=== PATIENT | male | born 1980 | race Caucasian/White ===

== ENCOUNTER 2016-08-07 15:33 | Emergency (ER) | payer OTHER ==
[2016-08-07] MEDS ORDERED: MORPHINE 4 MG/ML 1ML SYRINGE As Ordered ONE ×2 (16:46→17:35)
[2016-08-07] MEDS ORDERED: ONDANSETRON 4MG/2ML VIAL (J2405) As Ordered ONE (16:46)
[2016-08-07] MEDS ORDERED: KETOROLAC 30 MG/ML VIAL (J1885) As Ordered ONE (17:06)
[2016-08-07 17:08] LABS: BASO % 0.7 % (0.0-1.0); EOS # 0.3 K/mm3 (0.0-0.50); EOS % 4.9 % (0.0-3.0); LARGE UNSTAINED CELL # 0.1 K/mm3 (0.0-0.4); LARGE UNSTAINED CELL % 2.1 % (0.0-4.0); LYMPH # 2.3 K/mm3 (1.5-4.5); LYMPH % 32.4 % (24.0-44.0); MEAN CORPUSCULAR HEMOGLOBIN 30.3 pg (27.0-33.0); MEAN CORPUSCULAR HGB CONC 35.5 g/dl (32.0-36.5); MEAN CORPUSCULAR VOLUME 85.2 fl (80.0-96.0); MONO # 0.4 K/mm3 (0.0-0.8); MONO % 6.1 % (0.0-5.0); NEUTROPHILS # 3.8 K/mm3 (1.8-7.7); NEUTROPHILS % 53.9 % (36.0-66.0); PLATELET COUNT, AUTOMATED 257 k/mm3 (150-450); RED CELL DISTRIBUTION WIDTH 12.8 % (11.5-14.5)
[2016-08-07 17:31] LABS: ALBUMIN 4.2 GM/DL (3.2-5.2); ALBUMIN/GLOBULIN RATIO 1.14 (1.00-1.93); ALKALINE PHOSPHATASE 72 U/L (45-117); ALT/SGPT 89 U/L (12-78); AMYLASE 19 U/L (25-115); ANION GAP 8 MEQ/L (8-16); AST/SGOT 28 U/L (15-37); BILIRUBIN,DIRECT 0.1 MG/DL (0.0-0.2); BILIRUBIN,TOTAL 0.5 MG/DL (0.2-1.0); BLOOD UREA NITROGEN 17 MG/DL (7-18); CARBON DIOXIDE LEVEL 25 MEQ/L (21-32); CHLORIDE LEVEL 107 MEQ/L (98-107); CREATININE FOR GFR 0.97 MG/DL (0.70-1.30); GLOMERULAR FILTRATION RATE > 60.0 (>60); GLUCOSE, FASTING 93 MG/DL (70-105); SODIUM LEVEL 140 MEQ/L (136-145); TOTAL PROTEIN 7.9 GM/DL (6.4-8.2)
[2016-08-07] MEDS ORDERED: GASTROGRAFIN SOLUTION 30ML (Q9963) As Ordered ONE (17:44)
[2016-08-07] MEDS ORDERED: MORPHINE 2 MG/ML 1ML SYRINGE As Ordered ONE (18:06)
[2016-08-07] MEDS ORDERED: ISOVUE-370 76% 100ML VIAL (Q9967) As Ordered ONE (19:16)
[2016-08-07] MEDS ORDERED: DICYCLOMINE INJ 20MG/2ML (J0500) As Ordered ONE (19:26)
[2016-08-07] MEDS ORDERED: ACETAMINOPHEN/CODEINE #3 TABLET (BULK) As Ordered ONE (20:27)
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
--- NOTE | 2016-08-08 10:23 | REP ---
Clinical: Abdominal pain with history of Crohn disease. Technique: Axial contrast enhanced images from the lung bases to the pubic symphysis using oral and 100 ml Isovue 370 intravenous contrast material with coronal and sagittal re-formations. Comparison: 05/20/2016. Findings: Lung bases demonstrate bibasilar atelectasis. Fatty infiltration to the liver is again noted without focal hepatic lesion. Spleen, pancreas, gallbladder, bilateral adrenal glands and kidneys are normal. The enteric system is without obstruction or obvious definite acute inflammatory process. A normal terminal ileum and appendix are identified in the right lower quadrant. Sigmoid diverticula noted without acute diverticulitis. Pelvis demonstrates normal bladder and age appropriate prostate/seminal vesicles. No pelvic fluid or ascites. No intraperitoneal or retroperitoneal adenopathy. Vasculature is normal. No free air. Musculoskeletal structures intact. Impression: 1. Fatty infiltration to the liver. 2. Relatively normal appearance to the enteric system including cecum, terminal ileum and appendix. 3. Basilar atelectasis. 4. No free fluid and no obvious acute intra-abdominal or pelvic pathology appreciated Signed by Carlos Kendrick MD 08/08/2016 10:14 A
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
== END 2016-08-07 20:40 | disposition home or self-care (01) ==
LOC: M ED 15:33
DX: R10.30 Lower abdominal pain, unspecified (principal); I10 Essential (primary) hypertension; I49.9 Cardiac arrhythmia, unspecified; F41.9 Anxiety disorder, unspecified; F32.9 Major depressive disorder, single episode, unspecified; Z79.899 Other long term (current) drug therapy; Z79.82 Long term (current) use of aspirin; Z88.0 Allergy status to penicillin; Z87.891 Personal history of nicotine dependence

== ENCOUNTER → 2016-08-18 | Outpatient (CLI) | payer OTHER ==
--- NOTE | 2016-08-21 23:44 | SLEEPCENT ---
DATE OF PROCEDURE: 08/18/2016 ORDERED BY: Ramona Carty Nocturnal polysomnography was performed for evaluation of sleep apnea syndrome symptoms in this patient with a history of excessive somnolence, nonrestorative sleep and comorbidities of hypertension. 8 hours and 23 minutes of data were reviewed. There 387 minutes of sleep identified. Sleep latency was prolonged at 45 minutes. Rapid eye movement (REM) latency was prolonged at 214 minutes. Sleep architecture was fragmented. There were 3 REM periods appreciated. Overall sleep efficiency was fair at 77.8% but there was a reduction in REM time noted. The patient's EKG showed a sinus rhythm with some rate variability. Average heart rate 65 beats per minute. EEG showed normal waveforms for awake and sleep stages. There were 178 respiratory events identified of 10 seconds in duration or greater for an apnea-hypopnea index of 27.6. The events were primarily obstructive, not exclusive to sleep stage nor to body posture. Arousals from respiratory events occurred 13.8 times per hour. Oxygen desaturations were seen into the 80s. There was significant limb activity identified during the study and 3-4 trains of 30 events were seen. Limb movement arousal index was 9.9. IMPRESSION: 1. Obstructive sleep apnea syndrome (G47.33). Apnea-hypopnea index 27.6. 2. Periodic limb movement (G47.61). Limb movement arousal index 9.9. RECOMMENDATION: The patient should be encouraged to return to the sleep disorder center for pressure therapy. In the interim, alcohol and sedative avoidance should be practiced and caution exercised during the operation of motor vehicles. Pending the response to pressure therapy, interventions to reduce the frequency of arousal from limb activity may also be helpful. Copy To: Donald Thomas
== END ==
LOC: M SLEEP 19:22
PROVIDERS: ATTEND Nurse Practitioner Adult Health
DX: G47.33 Obstructive sleep apnea (adult) (pediatric) (principal); G47.61 Periodic limb movement disorder

== ENCOUNTER 2016-08-30 23:42 | Emergency (ER) | payer OTHER ==
[2016-08-31 02:17] LABS: BASO % 0.6 % (0.0-1.0); EOS # 0.3 K/mm3 (0.0-0.50); EOS % 4.2 % (0.0-3.0); LARGE UNSTAINED CELL # 0.2 K/mm3 (0.0-0.4); LARGE UNSTAINED CELL % 2.3 % (0.0-4.0); LYMPH # 1.9 K/mm3 (1.5-4.5); LYMPH % 29.2 % (24.0-44.0); MEAN CORPUSCULAR HEMOGLOBIN 29.9 pg (27.0-33.0); MEAN CORPUSCULAR HGB CONC 34.7 g/dl (32.0-36.5); MEAN CORPUSCULAR VOLUME 86.2 fl (80.0-96.0); MONO # 0.5 K/mm3 (0.0-0.8); MONO % 7.3 % (0.0-5.0); NEUTROPHILS # 3.7 K/mm3 (1.8-7.7); NEUTROPHILS % 56.4 % (36.0-66.0); PLATELET COUNT, AUTOMATED 241 k/mm3 (150-450); RED CELL DISTRIBUTION WIDTH 13.3 % (11.5-14.5); WHITE BLOOD COUNT 6.6 K/mm3 (4.0-10.0)
[2016-08-31 02:25] LABS: INR 0.96
[2016-08-31 02:53] LABS: ALBUMIN 3.8 GM/DL (3.2-5.2); ALBUMIN/GLOBULIN RATIO 1.15 (1.00-1.93); ALKALINE PHOSPHATASE 75 U/L (45-117); ALT/SGPT 70 U/L (12-78); AMYLASE 24 U/L (25-115); ANION GAP 8 MEQ/L (8-16); AST/SGOT 28 U/L (15-37); BILIRUBIN,DIRECT < 0.1 MG/DL (0.0-0.2); BILIRUBIN,TOTAL 0.2 MG/DL (0.2-1.0); BLOOD UREA NITROGEN 15 MG/DL (7-18); CALCIUM LEVEL 8.7 MG/DL (8.5-10.1); CARBON DIOXIDE LEVEL 28 MEQ/L (21-32); CHLORIDE LEVEL 107 MEQ/L (98-107); CREATININE FOR GFR 1.05 MG/DL (0.70-1.30); GLOMERULAR FILTRATION RATE > 60.0 (>60); GLUCOSE, FASTING 134 MG/DL (70-105); SODIUM LEVEL 143 MEQ/L (136-145); TOTAL PROTEIN 7.1 GM/DL (6.4-8.2)
[2016-08-31] MEDS ORDERED: HYDROmorphone HCL 1 MG/ML SYRINGE (J1170) As Ordered ONE ×2 (03:24→04:06)
[2016-08-31] MEDS ORDERED: GASTROGRAFIN SOLUTION 30ML (Q9963) As Ordered ONE (03:48)
[2016-08-31] MEDS ORDERED: ISOVUE-370 76% 100ML VIAL (Q9967) As Ordered ONE (05:26)
--- NOTE | 2016-08-31 06:40 | REPUSA ---
CLINICAL HISTORY: Abdominal pain. TECHNIQUE: Multiple axial, sagittal and coronal CT images were obtained through the abdomen and pelvi s after administration of oral and intravenous contrast material. COMMENTS: The liver is moderately enlarged with decreased attenuation without mass or defect. There is no intra or extrahepatic biliary ductal dilatation. The spleen is normal. The gallbladder is within normal li mits. The pancreas is of normal contour and attenuation characteristics. There is no evidence of adre nal mass. Both kidneys demonstrate prompt and equal nephrograms. The kidneys are normal in size, shape and conf iguration. There is no evidence of renal or ureteral mass. No renal or ureteral calculi are identifie d. There is no hydroureter or hydronephrosis. No evidence for appendicitis. There is no bowel wall thickening. No evidence for small or large pancho l obstruction. There is no evidence of abdominal ascites or lymphadenopathy. There is no evidence of intrinsic or extrinsic bladder mass. There is no pelvic ascites or lymphadeno kamilah. Diffuse thickening of the bladder. Images of the lung bases show no evidence of pleural or parenchymal mass. There are no pleural effusi ons. Bilateral basilar atelectatic pulmonary changes. The bony structures are free of lytic or blastic lesions. Multilevel degenerative changes are seen in volving the thoracolumbar spine. Scattered calcifications are seen involving the aorta and major bran ches compatible with atherosclerosis. IMPRESSION: No evidence of acute abdominal or pelvic pathology. Mildly thickened bladder. Probably underdistention. Hepatomegaly with fat infiltration. Thank you for your kind referral of this patient.
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
== END 2016-08-31 07:08 | disposition home or self-care (01) ==
LOC: M ED 23:42
DX: K76.0 Fatty (change of) liver, not elsewhere classified (principal); R16.0 Hepatomegaly, not elsewhere classified; F41.9 Anxiety disorder, unspecified; F32.9 Major depressive disorder, single episode, unspecified; I10 Essential (primary) hypertension; I49.9 Cardiac arrhythmia, unspecified; Z87.891 Personal history of nicotine dependence; Z79.82 Long term (current) use of aspirin; Z79.899 Other long term (current) drug therapy; Z88.0 Allergy status to penicillin

== ENCOUNTER 2016-09-07 22:57 | Inpatient (IN) | payer OTHER ==
[~2016-09-07] VITALS: Ht 182.9 cm; Wt 137.2 kg
[2016-09-08] MEDS ORDERED: MORPHINE 4 MG/ML 1ML SYRINGE As Ordered ONE ×2 (00:35→01:20)
[2016-09-08] MEDS ORDERED: ONDANSETRON 4MG/2ML VIAL (J2405) As Ordered ONE ×2 (00:35→11:55)
[2016-09-08 00:51] LABS: BASO % 0.9 % (0.0-1.0); EOS # 0.3 K/mm3 (0.0-0.50); EOS % 4.9 % (0.0-3.0); LARGE UNSTAINED CELL # 0.2 K/mm3 (0.0-0.4); LARGE UNSTAINED CELL % 3.5 % (0.0-4.0); LYMPH # 2.1 K/mm3 (1.5-4.5); LYMPH % 34.9 % (24.0-44.0); MEAN CORPUSCULAR HEMOGLOBIN 28.8 pg (27.0-33.0); MEAN CORPUSCULAR HGB CONC 33.7 g/dl (32.0-36.5); MEAN CORPUSCULAR VOLUME 85.5 fl (80.0-96.0); MONO # 0.4 K/mm3 (0.0-0.8); MONO % 6.7 % (0.0-5.0); NEUTROPHILS # 2.9 K/mm3 (1.8-7.7); NEUTROPHILS % 49.2 % (36.0-66.0); PLATELET COUNT, AUTOMATED 260 k/mm3 (150-450); RED CELL DISTRIBUTION WIDTH 13.2 % (11.5-14.5); WHITE BLOOD COUNT 5.9 K/mm3 (4.0-10.0)
[2016-09-08 01:03] LABS: INR 1.09
[2016-09-08 01:11] LABS: ALBUMIN 4.1 GM/DL (3.2-5.2); ALBUMIN/GLOBULIN RATIO 1.11 (1.00-1.93); ALKALINE PHOSPHATASE 64 U/L (45-117); ALT/SGPT 60 U/L (12-78); AMYLASE 28 U/L (25-115); ANION GAP 11 MEQ/L (8-16); AST/SGOT 27 U/L (15-37); BILIRUBIN,DIRECT 0.1 MG/DL (0.0-0.2); BILIRUBIN,TOTAL 0.4 MG/DL (0.2-1.0); BLOOD UREA NITROGEN 13 MG/DL (7-18); CARBON DIOXIDE LEVEL 26 MEQ/L (21-32); CHLORIDE LEVEL 105 MEQ/L (98-107); GLOMERULAR FILTRATION RATE > 60.0 (>60); GLUCOSE, FASTING 85 MG/DL (70-105); POTASSIUM SERUM 4.1 MEQ/L (3.5-5.1); SODIUM LEVEL 142 MEQ/L (136-145); TOTAL PROTEIN 7.8 GM/DL (6.4-8.2)
[2016-09-08] MEDS ORDERED: HYDROmorphone HCL 1 MG/ML SYRINGE (J1170) As Ordered ONE ×3 (02:16→09:07)
[2016-09-08] MEDS ORDERED: ISOVUE-370 76% 100ML VIAL (Q9967) As Ordered ONE (02:41)
--- NOTE | 2016-09-08 03:30 | REPUSA ---
CLINICAL HISTORY: Abdominal pain. TECHNIQUE: Multiple axial, sagittal and coronal CT images were obtained through the abdomen and pelvi s after administration of intravenous contrast material. COMMENTS: Fluid-filled mildly dilated proximal small bowel loops in the left upper quadrant. Transition to norm al caliber small bowel seen in the left lower quadrant. Uncomplicated clonic diverticulosis. The liver is moderately enlarged and attenuation without mass or defect. There is no intra or extrahe patic biliary ductal dilatation. The spleen is normal. The gallbladder is within normal limits. The p ancreas is of normal contour and attenuation characteristics. There is no evidence of adrenal mass. Thickening of the distal aspect of the transverse colon extending to the proximal descending colon. Both kidneys demonstrate prompt and equal nephrograms. The kidneys are normal in size, shape and conf iguration. There is no evidence of renal or ureteral mass. No renal or ureteral calculi are identifie d. There is no hydroureter or hydronephrosis. No evidence for appendicitis. There is no evidence of abdominal ascites or lymphadenopathy. There is no evidence of intrinsic or extrinsic bladder mass. There is no pelvic ascites or lymphadeno kamilah. Images of the lung bases show no evidence of pleural or parenchymal mass. There are no pleural effusi ons. Bilateral multifocal air trapping in the lungs. The bony structures are free of lytic or blastic lesions. Multilevel degenerative changes are seen in volving the thoracolumbar spine. Scattered calcifications are seen involving the aorta and major bran ches compatible with atherosclerosis. IMPRESSION: Fluid-filled dilated proximal small bowel loops. Focal ileus versus developing/low grade partial smal l bowel obstruction. No evidence of bowel perforation or pneumatosis intestinalis. Hepatomegaly with fatty liver infiltration. Thickened distal transverse/proximal descending colon. Under distention versus mild colitis. Thank you for your kind referral of this patient.
[2016-09-08] MEDS ORDERED: DULO1CAP PO (04:41)
[2016-09-08] MEDS ORDERED: LISI-542 PO (04:41)
[2016-09-08] MEDS ORDERED: ASPI81TA7 PO (04:41)
[2016-09-08] MEDS ORDERED: CLON1TAB PO (04:41)
[2016-09-08] MEDS ORDERED: AMBI10TA PO (04:41)
[2016-09-08] MEDS ORDERED: METO50TA2 PO (04:41)
[2016-09-08] MEDS ORDERED: methylPREDNISolone INJ 125 MG/2 ML VIAL (J2930) As Ordered ONE (06:34)
[2016-09-08] MEDS ORDERED: DULoxetine 20 MG CAP (CYMBALTA) PO SCH (09:00)
[2016-09-08] MEDS ORDERED: ACETAMINOPHEN 650 MG SUPP PR PRN (10:30)
[2016-09-08] MEDS ORDERED: BISACODYL 10 MG SUPP PR PRN (10:30)
--- NOTE | 2016-09-08 11:17 | HPE ---
DATE OF ADMISSION: 09/08/2016 PRIMARY CARE PROVIDER: Donald Thomas MD This is a 36-year-old gentleman who presented to [facility] Emergency Room (ER) for significant abdominal pain with nausea and vomiting, last tolerated any by mouth foods well over 24 hours ago. 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 Patient did followup with his PCP, has an appointment with gastroenterology, Dr. Corea, on 09/09/2016, at 9 a.m., secondary to recurrent small bowel obstruction (SBO), abdominal pain, and diarrhea. Patient presented today due to feeling similar symptoms from the prior SBO. Nasogastric (NG) tube was subsequently placed and has had approximately 800 mL of nasogastric substance noted. LABORATORY DATA: Shows white blood cell count of 5000, hemoglobin and hematocrit of 13 and 39, platelets 260. Chemistry is negative. Amylase and lipase are normal. Imaging was completed. CT of abdomen and pelvis shows fluid filled dilated proximal small bowel loops, focal ileus versus developing low grade partial small bowel obstruction. Also noted patient has hepatomegaly with fatty liver infiltration. Other findings include a thickened distal transverse proximal descending colon, underdistention versus mild colitis. Therefore, family and medicine service was called to evaluate patient for admission. PAST MEDICAL HISTORY: 1. Recent diagnoses of SBO. 2. History of atrial fibrillation. He follows with [facility] ([facility] Cardiology in the [facility] office. 3. Diabetes type 2. 4. Non-Hodgkin's lymphoma. 5. Anxiety. 6. History of pulmonary embolus (PE) times two, one was postoperatively, the other patient is unable to confirm if it was secondary to his atrial fibrillation. States he took anticoagulation for 6 months. 7. History of polysubstance abuse; cocaine, opiates, benzodiazepines. He has been sober since the age of 25 as far as street drugs go. He does have a history of a suicide attempt and drug overdose in the past. 8. History of asthma. 9. History of being a former smoker. ALLERGIES: Include PENICILLIN which causes anaphylaxis. SURGICAL HISTORY: 1. Biopsy of chest was positive for lymphoma and is status post lymph node removal and resection in 2008. 2. Left knee open reduction internal fixation (ORIF) in 1996. FAMILY HISTORY: Father is living, 64 years of age, with type 2 diabetes and hypertension. Mother is living and 62 years of age, patient has no contact with her and medical history is unknown. Brother, 41 years old, living and is well. Sister, 38 years old, type 2 diabetes. SOCIAL HISTORY: Patient has been clean from street drugs since the age of 25. He has not used alcohol in 2 years and he quit smoking approximately 5 years ago. Patient lives with his and his nephew for whom he has had guardianship since early age. 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 REVIEW OF SYSTEMS: Denies fevers or cold chills. Denies sore throat. Denies headache. Denies chest pain. Denies heart palpitations. Denies shortness of breath. Does admit to no flatus for the last 24 hours. Does admit to positive abdominal pain as well as vomiting and history of prior SBO along with bloating feeling. Denies any muscle aches or pains. Denies any headache or blurred vision or dizziness. PHYSICAL EXAMINATION: On physical examination today, vital signs have been stable, patient has been afebrile, blood pressure is mildly soft in the 100s over 60s. White blood cell count and labs are as stated in history of present illness (HPI). HEENT: Neck is supple without lymphadenopathy or jugular venous distention (JVD). CARDIOVASCULAR: Heart rate and rhythm are regular. PULMONARY: Lungs are clear to auscultation bilaterally. ABDOMEN: With very hypoactive bowel sounds. He is tender to the left upper quadrant and mid epigastric area as well as the left lower quadrant. BILATERAL LOWER EXTREMITIES: Are without any edema. NEUROLOGIC: Patient is alert and oriented times three. PSYCHIATRIC: Affect is mildly anxious, however patient answers questions appropriately, conversation is congruent, and eye contact is maintained. ASSESSMENT: 1. Partial small bowel obstruction versus ileus. 2. History of atrial fibrillation. 3. History of pulmonary embolus (PE). 4. History of type 2 diabetes. 5. Anxiety. PLAN: Patient will be admitted to medical/surgical floor. Nasogastric (NG) tube is placed. Patient is nothing by mouth. Will maintain fluid volume status with dextrose 5% (D5) half normal saline at 100 mL/hour. Repeat labs in morning. Dr. Petit is following patient and consult will be placed. Activity is out of bed as tolerated. Medications are as follows: - citalopram 20 mg one daily - clonazepam 1 mg via NG tube twice a day - lisinopril 5 mg via NG tube daily - metoprolol succinate 50 mg by mouth twice a day Deep venous thrombosis (DVT) prophylaxis includes Lovenox 40 mg subcutaneous daily. Gastrointestinal (GI) prophylaxis includes Protonix 40 mg IV every 24 hours and Zofran 4 mg IV every 6 hours as needed for nausea or vomiting. Attending physician is Dr. Brennen Jones and he concurs with stated admission and plan.
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
[2016-09-08 12:30] VITALS: BP 134/83
[2016-09-08] MEDS ORDERED: MORPHINE 4 MG/ML 1ML SYRINGE IV PRN (12:30)
[2016-09-08] MEDS: PANTOPRAZOLE 40MG INJ (PROTONIX) (C9113) IV SCH (12:43)
[2016-09-08] MEDS: D5W/0.45% SODIUM CHLORIDE 1,000 ML IV SCH ×2 (12:44→21:34)
[2016-09-08] MEDS ORDERED: METF1000 PO (13:46)
[2016-09-08] MEDS ORDERED: FLUV50TA PO (13:46)
[2016-09-08] MEDS ORDERED: CITA20TA4 PO (13:46)
[2016-09-08 14:00] VITALS: BP 124/70
[2016-09-08] MEDS: MORPHINE 4 MG/ML 1ML SYRINGE IV PRN ×4 (14:06→21:21)
[2016-09-08] MEDS: CitaloPRAM (CeleXA) 20 MG TAB PO SCH (14:30)
[2016-09-08] MEDS: LISINOPRIL 5 MG TAB PO SCH (14:31)
[2016-09-08] MEDS: METOPROLOL TART 50 MG TAB NG SCH ×2 (14:31→21:34)
[2016-09-08] MEDS: clonazePAM 1 MG TAB NG SCH ×2 (14:33→21:32)
--- NOTE | 2016-09-08 17:52 | CR ---
DATE OF CONSULTATION: 09/08/2016 CONSULTATION REPORT FOR: Dr. Thomas REASON FOR CONSULTATION: Intractable nausea, vomiting, and diarrhea. HISTORY OF PRESENT ILLNESS: Please review my office generated history and physical that will be faxed and scanned into the hospital electronic medical record (EMR). IMPRESSION: 1. A 2-3 month history of intractable diarrhea with and without blood at times. 2. Episodes of nausea and vomiting with and without blood at times. 3. Failed empiric steroid therapy and empiric antibiotic therapy. 4. Small bowel obstruction versus ileus. RECOMMENDATIONS: 1. Stool for Clostridium (C) difficile toxin. 2. Esophagogastroduodenoscopy (EGD) and colonoscopy once able to tolerate colon preparation. 3. Depending on results of above, will probably need a small bowel follow through. 4. Further recommendations depending on above studies.
[2016-09-08] MEDS: ONDANSETRON 4MG/2ML VIAL (J2405) IV PRN (18:45)
[2016-09-08] MEDS ORDERED: METOPROLOL SUCC (TopROL XL) 50MG **XL** TAB PO ONE (21:00)
[2016-09-08] MEDS: fluvoxaMINE MALEATE 50 MG TAB PO SCH (21:32)
[2016-09-08 22:00] VITALS: BP 123/60
[2016-09-09] MEDS: MORPHINE 4 MG/ML 1ML SYRINGE IV PRN ×6 (01:18→23:19)
[2016-09-09] MEDS: ONDANSETRON 4MG/2ML VIAL (J2405) IV PRN ×2 (01:19→20:54)
[2016-09-09 06:00] VITALS: BP 116/55
[2016-09-09] MEDS: D5W/0.45% SODIUM CHLORIDE 1,000 ML IV SCH ×3 (06:02→22:17)
[2016-09-09 06:30] LABS: BASO % 0.3 % (0.0-1.0); EOS # 0.2 K/mm3 (0.0-0.50); LARGE UNSTAINED CELL # 0.2 K/mm3 (0.0-0.4); LARGE UNSTAINED CELL % 2.3 % (0.0-4.0); LYMPH # 1.7 K/mm3 (1.5-4.5); LYMPH % 19.4 % (24.0-44.0); MEAN CORPUSCULAR HEMOGLOBIN 29.6 pg (27.0-33.0); MEAN CORPUSCULAR HGB CONC 34.9 g/dl (32.0-36.5); MEAN CORPUSCULAR VOLUME 84.8 fl (80.0-96.0); MONO # 0.5 K/mm3 (0.0-0.8); NEUTROPHILS # 6.2 K/mm3 (1.8-7.7); NEUTROPHILS % 69.9 % (36.0-66.0); PLATELET COUNT, AUTOMATED 258 k/mm3 (150-450); RED CELL DISTRIBUTION WIDTH 13.5 % (11.5-14.5); WHITE BLOOD COUNT 8.9 K/mm3 (4.0-10.0)
[2016-09-09 06:56] LABS: ALBUMIN 3.4 GM/DL (3.2-5.2); ALBUMIN/GLOBULIN RATIO 1.03 (1.00-1.93); ALKALINE PHOSPHATASE 52 U/L (45-117); ALT/SGPT 52 U/L (12-78); ANION GAP 6 MEQ/L (8-16); AST/SGOT 18 U/L (15-37); BILIRUBIN,TOTAL 0.5 MG/DL (0.2-1.0); BLOOD UREA NITROGEN 9 MG/DL (7-18); CALCIUM LEVEL 7.7 MG/DL (8.5-10.1); CARBON DIOXIDE LEVEL 28 MEQ/L (21-32); CHLORIDE LEVEL 105 MEQ/L (98-107); CREATININE FOR GFR 0.91 MG/DL (0.70-1.30); GLOMERULAR FILTRATION RATE > 60.0 (>60); GLUCOSE, FASTING 130 MG/DL (70-105); POTASSIUM SERUM 3.5 MEQ/L (3.5-5.1); SODIUM LEVEL 139 MEQ/L (136-145); TOTAL PROTEIN 6.7 GM/DL (6.4-8.2)
[2016-09-09] MEDS: PANTOPRAZOLE 40MG INJ (PROTONIX) (C9113) IV SCH (08:37)
[2016-09-09] MEDS: ENOXAPARIN 40 MG/0.4 ML SYRINGE (J1650) SC SCH (08:37)
[2016-09-09] MEDS: CitaloPRAM (CeleXA) 20 MG TAB PO SCH (08:38)
[2016-09-09] MEDS: clonazePAM 1 MG TAB NG SCH ×2 (08:38→21:27)
[2016-09-09] MEDS: LISINOPRIL 5 MG TAB PO SCH (08:38)
[2016-09-09] MEDS: METOPROLOL TART 50 MG TAB NG SCH ×2 (08:38→21:28)
--- NOTE | 2016-09-09 08:44 | IPNPDOC ---
Subjective General Date Seen The patient was seen on 09/09/16. Subjective Chief Complaint/HPI The patient is a 36-year-old male admitted with a reason for visit of Anxiety Atrial Fibrillation Diabetes Ileus. Events since last encounter Vomited after drinking clear liquids too fast. Passing flatus. less abdominal pain. Planning on EGD/colonoscopy when able to tolerate prep. Constitutional: Denies: Chills, Fever, Night Sweats Pulmonary: Denies: Cough, Dyspnea Gastrointestinal: Denies: Abdominal Pain, Constipation, Diarrhea, Nausea, Vomiting Genitourinary: Denies: Dysuria, Frequency, Incontinence, Retention Psych: Reports: Mood Normal, Denies: Depression, Memory Issues Objective Physical Examination Eye Exam: Positive: Conjunctiva & lids normal, EOMI, PERRLA, Negative: Other Eye Symptoms, Ptosis, Sclera icteric Neck Exam: Positive: Supple, Negative: JVD, thyromegaly Chest Exam: Positive: Clear to auscultation, Normal air movement Heart Exam: Positive: Normal S1, Normal S2, Rate Normal, Regular Rhythm, Negative: Murmurs, Rubs Abdomen Exam: Positive: Normal bowel sounds, Soft, Negative: Hepatospenomegaly, Tenderness Psych Exam: Positive: Mental status NL, Mood NL, Oriented x 3 Assessment /Plan Problems Problems: (1) Chronic diarrhea Status: Acute Problem Text: new onset bloody diarrhea since ~04/2016 - GI panel 08/2016 CRP 0.4/ESR 12 (2) Ileus Status: Acute Problem Specific Plan: Consult Specialist Problem Text: Gastro following. planning on EGD/colon when able to tolerate prep. (3) SBO (small bowel obstruction) Status: Acute Problem Specific Plan: Consult Specialist (4) Diabetes Status: Chronic Response to Treatment: Stable (5) Anxiety Status: Chronic Response to Treatment: Stable (6) Lymphoma Status: Chronic Response to Treatment: Stable Plan/VTE VTE Prophylaxis Ordered?: Yes (Lovenox) VS, I&O, 24H, Fishbone Vital Signs/I&O Vital Signs Date Time Temp Pulse Resp B/P Pulse Ox O2 Delivery O2 Flow Rate FiO2 09/09/16 06:00 96.1 62 18 116/55 95 Room Air I&O- Last 24 Hours up to 6 AM 09/09/16 06:00 Intake Total 2040 ml Output Total 1800 ml Balance 240 ml Laboratory Data 24H LABS Laboratory Tests 2 2/13/17 12:43: C-Reactive Protein, Quantitative 0.42H, Erythrocyte Sedimentation Rate 15 09/09/16 05:39: Blood Urea Nitrogen 9, Creatinine 0.91, Sodium Level 139, Potassium Level 3.5, Chloride Level 105, Carbon Dioxide Level 28, Calcium Level 7.7L, Aspartate Amino Transf (AST/SGOT) 18, Alanine Aminotransferase (ALT/SGPT) 52, Alkaline Phosphatase 52, Total Bilirubin 0.5, Total Protein 6.7, Albumin 3.4, Albumin/ Globulin Ratio 1.03, Anion Gap 6L, White Blood Count 8.9, Red Blood Count 4.20L , Hemoglobin 12.4L, Hematocrit 35.6L, Mean Corpuscular Volume 84.8, Mean Corpuscular Hemoglobin 29.6, Mean Corpuscular Hemoglobin Concent 34.9, Red Cell Distribution Width 13.5, Platelet Count 258, Neutrophils (%) (Auto) 69.9H, Lymphocytes (%) (Auto) 19.4L, Monocytes (%) (Auto) 6.0H, Eosinophils (%) (Auto) 2.0, Basophils (%) (Auto) 0.3, Neutrophils # (Auto) 6.2, Lymphocytes # (Auto) 1.7, Monocytes # (Auto) 0.5, Eosinophils # (Auto) 0.2, Basophils # (Auto) 0.0, Glomerular Filtration Rate > 60.0, Large Unclassified Cells # 0.2, Large Unclassified Cells % 2.3 CBC/BMP Laboratory Tests 09/09/16 05:39 Calcium Level 7.7 L, Aspartate Amino Transf (AST/SGOT) 18, Alanine Aminotransferase (ALT/SGPT) 52, Alkaline Phosphatase 52, Total Bilirubin 0.5, Total Protein 6.7, Albumin 3.4, Red Blood Count 4.20 L, Mean Corpuscular Volume 84.8, Mean Corpuscular Hemoglobin 29.6, Mean Corpuscular Hemoglobin Concent 34.9 , Red Cell Distribution Width 13.5, Neutrophils (%) (Auto) 69.9 H, Lymphocytes ( %) (Auto) 19.4 L, Monocytes (%) (Auto) 6.0 H, Eosinophils (%) (Auto) 2.0, Basophils (%) (Auto) 0.3, Neutrophils # (Auto) 6.2, Lymphocytes # (Auto) 1.7, Monocytes # (Auto) 0.5, Eosinophils # (Auto) 0.2, Basophils # (Auto) 0.0 Deanne Restrepo Sep 09, 2016 08:44 Brennen Jones M.D. Sep 09, 2016 16:10
[2016-09-09 14:00] VITALS: BP 127/80
[2016-09-09] MEDS: fluvoxaMINE MALEATE 50 MG TAB PO SCH (21:27)
[2016-09-09 22:00] VITALS: BP 118/67
[2016-09-10 06:00] VITALS: BP 110/65
[2016-09-10 06:08] LABS: BASO % 0.6 % (0.0-1.0); EOS # 0.3 K/mm3 (0.0-0.50); EOS % 5.5 % (0.0-3.0); LARGE UNSTAINED CELL # 0.1 K/mm3 (0.0-0.4); LARGE UNSTAINED CELL % 1.6 % (0.0-4.0); LYMPH % 37.7 % (24.0-44.0); MEAN CORPUSCULAR HEMOGLOBIN 29.8 pg (27.0-33.0); MEAN CORPUSCULAR HGB CONC 34.6 g/dl (32.0-36.5); MEAN CORPUSCULAR VOLUME 86.1 fl (80.0-96.0); MONO # 0.4 K/mm3 (0.0-0.8); MONO % 7.1 % (0.0-5.0); NEUTROPHILS # 2.4 K/mm3 (1.8-7.7); NEUTROPHILS % 47.5 % (36.0-66.0); PLATELET COUNT, AUTOMATED 234 k/mm3 (150-450); RED CELL DISTRIBUTION WIDTH 13.6 % (11.5-14.5)
[2016-09-10 06:16] LABS: ALBUMIN 3.1 GM/DL (3.2-5.2); ALBUMIN/GLOBULIN RATIO 1.07 (1.00-1.93); ALKALINE PHOSPHATASE 57 U/L (45-117); ALT/SGPT 52 U/L (12-78); ANION GAP 6 MEQ/L (8-16); AST/SGOT 20 U/L (15-37); BILIRUBIN,TOTAL 0.2 MG/DL (0.2-1.0); BLOOD UREA NITROGEN 9 MG/DL (7-18); CALCIUM LEVEL 7.9 MG/DL (8.5-10.1); CARBON DIOXIDE LEVEL 28 MEQ/L (21-32); CHLORIDE LEVEL 110 MEQ/L (98-107); CREATININE FOR GFR 0.87 MG/DL (0.70-1.30); GLOMERULAR FILTRATION RATE > 60.0 (>60); GLUCOSE, FASTING 85 MG/DL (70-105); SODIUM LEVEL 144 MEQ/L (136-145)
[2016-09-10] MEDS: ONDANSETRON 4MG/2ML VIAL (J2405) IV PRN (06:26)
[2016-09-10] MEDS: D5W/0.45% SODIUM CHLORIDE 1,000 ML IV SCH ×2 (06:26→22:45)
[2016-09-10] MEDS: MORPHINE 4 MG/ML 1ML SYRINGE IV PRN ×6 (06:27→22:08)
[2016-09-10] MEDS: PANTOPRAZOLE 40MG INJ (PROTONIX) (C9113) IV SCH (08:57)
[2016-09-10] MEDS: CitaloPRAM (CeleXA) 20 MG TAB PO SCH (08:58)
[2016-09-10] MEDS: clonazePAM 1 MG TAB NG SCH ×2 (08:58→21:09)
[2016-09-10] MEDS: LISINOPRIL 5 MG TAB PO SCH (08:58)
[2016-09-10] MEDS: METOPROLOL TART 50 MG TAB NG SCH ×2 (08:59→21:11)
[2016-09-10] MEDS: ENOXAPARIN 40 MG/0.4 ML SYRINGE (J1650) SC SCH (09:03)
[2016-09-10] MEDS ORDERED: MOM 30ML SUSPENSION UDC PO ONE (09:15)
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
[2016-09-10 14:00] VITALS: BP 126/73
[2016-09-10] MEDS ORDERED: GOLYTELY SOLN 4000 ML BTL PO ONE (17:00)
[2016-09-10] MEDS: fluvoxaMINE MALEATE 50 MG TAB PO SCH (21:09)
[2016-09-10 22:00] VITALS: BP 117/73
[2016-09-11] VITALS (10 sets, daily range): BP systolic 106–133; BP diastolic 56–82
[2016-09-11] MEDS: MORPHINE 4 MG/ML 1ML SYRINGE IV PRN ×8 (00:23→23:34)
[2016-09-11] MEDS: D5W/0.45% SODIUM CHLORIDE 1,000 ML IV SCH ×3 (03:47→23:30)
[2016-09-11] MEDS ORDERED: GOLYTELY SOLN 4000 ML BTL PO ONE (05:00)
[2016-09-11 06:46] LABS: BASO % 0.6 % (0.0-1.0); EOS # 0.2 K/mm3 (0.0-0.50); LARGE UNSTAINED CELL # 0.1 K/mm3 (0.0-0.4); LARGE UNSTAINED CELL % 2.2 % (0.0-4.0); LYMPH # 1.8 K/mm3 (1.5-4.5); LYMPH % 35.8 % (24.0-44.0); MEAN CORPUSCULAR HEMOGLOBIN 29.5 pg (27.0-33.0); MEAN CORPUSCULAR HGB CONC 34.7 g/dl (32.0-36.5); MEAN CORPUSCULAR VOLUME 84.9 fl (80.0-96.0); MONO # 0.4 K/mm3 (0.0-0.8); MONO % 7.7 % (0.0-5.0); NEUTROPHILS # 2.4 K/mm3 (1.8-7.7); NEUTROPHILS % 48.7 % (36.0-66.0); PLATELET COUNT, AUTOMATED 239 k/mm3 (150-450); RED CELL DISTRIBUTION WIDTH 13.2 % (11.5-14.5); WHITE BLOOD COUNT 4.9 K/mm3 (4.0-10.0)
[2016-09-11 07:02] LABS: ALBUMIN 3.4 GM/DL (3.2-5.2); ALBUMIN/GLOBULIN RATIO 1.17 (1.00-1.93); ALKALINE PHOSPHATASE 52 U/L (45-117); ALT/SGPT 66 U/L (12-78); ANION GAP 7 MEQ/L (8-16); AST/SGOT 25 U/L (15-37); BILIRUBIN,TOTAL 0.4 MG/DL (0.2-1.0); BLOOD UREA NITROGEN 5 MG/DL (7-18); CALCIUM LEVEL 8.3 MG/DL (8.5-10.1); CARBON DIOXIDE LEVEL 32 MEQ/L (21-32); CHLORIDE LEVEL 104 MEQ/L (98-107); CREATININE FOR GFR 0.83 MG/DL (0.70-1.30); GLOMERULAR FILTRATION RATE > 60.0 (>60); GLUCOSE, FASTING 92 MG/DL (70-105); POTASSIUM SERUM 3.7 MEQ/L (3.5-5.1); SODIUM LEVEL 143 MEQ/L (136-145); TOTAL PROTEIN 6.3 GM/DL (6.4-8.2)
[2016-09-11] MEDS: ONDANSETRON 4MG/2ML VIAL (J2405) IV PRN ×2 (08:05→17:09)
[2016-09-11] MEDS: PANTOPRAZOLE 40MG INJ (PROTONIX) (C9113) IV SCH (08:35)
[2016-09-11] MEDS: LISINOPRIL 5 MG TAB PO SCH (08:35)
[2016-09-11] MEDS: clonazePAM 1 MG TAB NG SCH ×2 (08:36→20:18)
[2016-09-11] MEDS: ENOXAPARIN 40 MG/0.4 ML SYRINGE (J1650) SC SCH (08:36)
[2016-09-11] MEDS: METOPROLOL TART 50 MG TAB NG SCH ×2 (08:36→20:18)
[2016-09-11] MEDS: CitaloPRAM (CeleXA) 20 MG TAB PO SCH (08:36)
--- NOTE | 2016-09-11 11:22 | IPNPDOC ---
Subjective Date Seen The patient was seen on 09/11/16. Subjective Chief Complaint/HPI The patient is a 36-year-old male admitted with a reason for visit of Anxiety Atrial Fibrillation Diabetes Ileus. Events since last encounter Feeling well. Pre completed. Plan is for colonoscopy today with Dr. Corea. Constitutional: Denies: Chills, Fever, Night Sweats Skin: Denies: Breakdown, Lesions, Rash Pulmonary: Denies: Cough, Dyspnea Cardiovascular: Denies: Chest Pain, Lt Headedness, Orthopnea, Palpitations, Paroxysmal Noc. Dyspnea Gastrointestinal: Denies: Abdominal Pain, Constipation, Diarrhea, Nausea, Vomiting Objective Physical Examination Eye Exam: Positive: Conjunctiva & lids normal, EOMI, PERRLA, Negative: Other Eye Symptoms, Ptosis, Sclera icteric Neck Exam: Positive: Supple, Negative: JVD, thyromegaly Chest Exam: Positive: Clear to auscultation, Normal air movement Heart Exam: Positive: Normal S1, Normal S2, Rate Normal, Regular Rhythm, Negative: Murmurs, Rubs Abdomen Exam: Positive: Normal bowel sounds, Soft, Negative: Hepatospenomegaly, Tenderness Neuro Exam: Positive: Normal Gait, Normal Speech, Reflexes 2+ Psych Exam: Positive: Mental status NL, Mood NL, Oriented x 3 Assessment /Plan Problems (1) Chronic diarrhea Status: Acute Problem Text: 09/11/16: Plan is for colonoscopy today with Dr. Corea New onset bloody diarrhea since ~04/2016 - GI panel 08/2016 CRP 0.4/ESR 12 08/2016 CgA <1 (2) Diabetes Status: Chronic Response to Treatment: Stable (3) Anxiety Status: Chronic Response to Treatment: Stable (4) Lymphoma Status: Chronic Response to Treatment: Stable Problem Text: No evidence of recurrent by 06/2016 CT chest, 08/2016 CT AP Plan/VTE VTE Prophylaxis Ordered?: Yes (Lovenox) VS, I&O, 24H, Fishbone Vital Signs/I&O Vital Signs Date Time Temp Pulse Resp B/P Pulse Ox O2 Delivery O2 Flow Rate FiO2 09/11/16 10:40 16 09/11/16 10:00 Room Air 09/11/16 08:35 133/82 09/11/16 08:11 97.4 53 96 I&O- Last 24 Hours up to 6 AM 09/11/16 06:00 Intake Total 3960 ml Output Total 3175 ml Balance 785 ml Laboratory Data 24H LABS Laboratory Tests 2 09/10/16 14:31: 09/11/16 06:21: Blood Urea Nitrogen 5L, Creatinine 0.83, Sodium Level 143, Potassium Level 3.7, Chloride Level 104, Carbon Dioxide Level 32, Calcium Level 8.3L, Aspartate Amino Transf (AST/SGOT) 25, Alanine Aminotransferase (ALT/SGPT) 66, Alkaline Phosphatase 52, Total Bilirubin 0.4#, Total Protein 6.3L, Albumin 3.4, Albumin/ Globulin Ratio 1.17, Anion Gap 7L, White Blood Count 4.9, Red Blood Count 4.38, Hemoglobin 12.9L, Hematocrit 37.2L, Mean Corpuscular Volume 84.9, Mean Corpuscular Hemoglobin 29.5, Mean Corpuscular Hemoglobin Concent 34.7, Red Cell Distribution Width 13.2, Platelet Count 239, Neutrophils (%) (Auto) 48.7, Lymphocytes (%) (Auto) 35.8, Monocytes (%) (Auto) 7.7H, Eosinophils (%) (Auto) 5.0H, Basophils (%) (Auto) 0.6, Neutrophils # (Auto) 2.4, Lymphocytes # (Auto) 1.8, Monocytes # (Auto) 0.4, Eosinophils # (Auto) 0.2, Basophils # (Auto) 0.0, Glomerular Filtration Rate > 60.0, Large Unclassified Cells # 0.1, Large Unclassified Cells % 2.2 CBC/BMP Laboratory Tests 09/11/16 06:21 Calcium Level 8.3 L, Aspartate Amino Transf (AST/SGOT) 25, Alanine Aminotransferase (ALT/SGPT) 66, Alkaline Phosphatase 52, Total Bilirubin 0.4 #, Total Protein 6.3 L, Albumin 3.4, Red Blood Count 4.38, Mean Corpuscular Volume 84.9, Mean Corpuscular Hemoglobin 29.5, Mean Corpuscular Hemoglobin Concent 34.7 , Red Cell Distribution Width 13.2, Neutrophils (%) (Auto) 48.7, Lymphocytes (% ) (Auto) 35.8, Monocytes (%) (Auto) 7.7 H, Eosinophils (%) (Auto) 5.0 H, Basophils (%) (Auto) 0.6, Neutrophils # (Auto) 2.4, Lymphocytes # (Auto) 1.8, Monocytes # (Auto) 0.4, Eosinophils # (Auto) 0.2, Basophils # (Auto) 0.0 Microbiology Microbiology 09/10/16 Gastrointestinal Tract Panel (PCR) - Final, Complete Deanne Restrepo [facility] Sep 11, 2016 11:22 Brennen Jones M.D. Sep 11, 2016 12:43 Basophils (%) (Auto) 0.6, Neutrophils # (Auto) 2.4, Lymphocytes # (Auto) 1.8, Monocytes # (Auto) 0.4, Eosinophils # (Auto) 0.2, Basophils # (Auto) 0.0 Microbiology Microbiology 09/10/16 Gastrointestinal Tract Panel (PCR) - Final, Complete Deanne Restrepo [facility] Sep 11, 2016 11:22
[2016-09-11 14:17] LABS: Chitobioside Carbohydrat (ACCA 37 units (0-90); Laminaribioside Carbohyd (ALCA 44 units (0-60); Mannobioside Carbohydrat (AMCA 50 units (0-100); Saccharomyces cerevisiae IgG A 10 units (0-50); TISSUE TRANSGLUTAMINASE IgG 2 U/mL (0-5)
[2016-09-11] MEDS ORDERED: PROPOFOL 200 MG/20 ML VIAL As Ordered ONE (15:31)
[2016-09-11] MEDS ORDERED: LIDOCAINE 2% INJ 100 MG/5 ML SDV (FOR ANES.) As Ordered ONE (15:37)
--- NOTE | 2016-09-11 15:46 | ROOR ---
Patient Name: Drew Beal Procedure Date: 09/11/2016 3:33 PM Date of : 1980 Age: 36 Room: [facility] Gender: Male Note Status: Finalized Procedure: Upper GI endoscopy Indications: Generalized abdominal pain, Suspected irritable bowel syndrome, Endoscopy to assess diarrhea in patient suspected of having disease of the small-bowel, Nausea with vomiting Providers: Jorge Luis ROWE MD Referring MD: Brennen Jones MD Requesting Provider: Medicines: Monitored Anesthesia Care Complications: No immediate complications. Procedure: Pre-Anesthesia Assessment: - The heart rate, respiratory rate, oxygen saturations, blood pressure, adequacy of pulmonary ventilation, and response to care were monitored throughout the procedure. The Endoscope was introduced through the mouth, and advanced to the third part of duodenum. The upper GI endoscopy was accomplished without difficulty. The patient tolerated the procedure well. Findings: The esophagus was normal. The stomach was normal. The examined duodenum was normal. Biopsies for histology were taken with a cold forceps for evaluation of celiac disease. Impression: - Normal esophagus. - Normal stomach. - Normal examined duodenum. Biopsied. Recommendation: - Perform a colonoscopy today. Jorge Luis Rowe MD Jorge Luis ROWE MD 09/11/2016 3:45:53 PM This report has been signed electronically. Number of Addenda: 0 Note Initiated On: 09/11/2016 3:33 PM Estimated Blood Loss: Estimated blood loss: none.
--- NOTE | 2016-09-11 16:03 | ROOR ---
Patient Name: Drew Beal Procedure Date: 09/11/2016 3:35 PM Date of : 1980 Age: 36 Room: [facility] Gender: Male Note Status: Finalized Procedure: Colonoscopy Indications: Generalized abdominal pain, Clinically significant diarrhea of unexplained origin, Abnormal CT of the GI tract, Exclusion of colitis, Suspected irritable bowel syndrome Providers: Jorge Luis ROWE MD Referring MD: Brennen Jones MD Requesting Provider: Medicines: Monitored Anesthesia Care Complications: No immediate complications. Procedure: Pre-Anesthesia Assessment: - The heart rate, respiratory rate, oxygen saturations, blood pressure, adequacy of pulmonary ventilation, and response to care were monitored throughout the procedure. The Colonoscope was introduced through the anus and advanced to 15 cm into the ileum. The colonoscopy was performed without difficulty. The patient tolerated the procedure well. The quality of the bowel preparation was good. Findings: The perianal and digital rectal examinations were normal. (Exam: Complete, Prep: Good or Excellent.) Internal hemorrhoids were found during retroflexion. The hemorrhoids were moderate. The colon appeared normal. The terminal ileum appeared normal. Biopsies for histology were taken with a cold forceps for evaluation of microscopic colitis. Impression: - Internal hemorrhoids. - The entire colon is normal. - The examined portion of the ileum was normal. - Biopsies were taken with a cold forceps for evaluation of microscopic colitis. - (Irritable Bowel Syndrome/IBS suspected.) Recommendation: - Await pathology results. - Telephone endoscopist for pathology results in 2 weeks. - Perform a small bowel follow through today. - Perform a small bowel follow through tomorrow. - Use Bentyl (dicyclomine) 20 mg PO TID Jorge Luis Rowe MD Jorge Luis ROWE MD 09/11/2016 4:03:09 PM This report has been signed electronically. Number of Addenda: 0 Note Initiated On: 09/11/2016 3:35 PM Estimated Blood Loss: Estimated blood loss: none.
[2016-09-11] MEDS ORDERED: DICYCLOMINE 10 MG CAP PO PRN (17:15)
[2016-09-11] MEDS: fluvoxaMINE MALEATE 50 MG TAB PO SCH (20:18)
[2016-09-11] MEDS: clonazePAM 1 MG TAB PO SCH (21:00)
[2016-09-12 02:00] VITALS: BP 110/62
[2016-09-12] MEDS: MORPHINE 4 MG/ML 1ML SYRINGE IV PRN ×7 (02:39→22:40)
[2016-09-12 06:00] VITALS: BP 102/57
[2016-09-12 06:32] LABS: BASO % 0.5 % (0.0-1.0); EOS # 0.3 K/mm3 (0.0-0.50); EOS % 5.4 % (0.0-3.0); LARGE UNSTAINED CELL # 0.1 K/mm3 (0.0-0.4); LARGE UNSTAINED CELL % 1.7 % (0.0-4.0); LYMPH # 1.5 K/mm3 (1.5-4.5); LYMPH % 29.5 % (24.0-44.0); MEAN CORPUSCULAR HEMOGLOBIN 29.5 pg (27.0-33.0); MEAN CORPUSCULAR HGB CONC 34.5 g/dl (32.0-36.5); MEAN CORPUSCULAR VOLUME 85.4 fl (80.0-96.0); MONO # 0.3 K/mm3 (0.0-0.8); MONO % 5.6 % (0.0-5.0); NEUTROPHILS # 2.9 K/mm3 (1.8-7.7); NEUTROPHILS % 57.4 % (36.0-66.0); PLATELET COUNT, AUTOMATED 239 k/mm3 (150-450); RED CELL DISTRIBUTION WIDTH 13.3 % (11.5-14.5)
[2016-09-12 06:36] LABS: ALBUMIN 3.2 GM/DL (3.2-5.2); ALBUMIN/GLOBULIN RATIO 1.07 (1.00-1.93); ALKALINE PHOSPHATASE 68 U/L (45-117); ALT/SGPT 69 U/L (12-78); ANION GAP 8 MEQ/L (8-16); AST/SGOT 24 U/L (15-37); BILIRUBIN,TOTAL 0.3 MG/DL (0.2-1.0); BLOOD UREA NITROGEN 7 MG/DL (7-18); CALCIUM LEVEL 8.2 MG/DL (8.5-10.1); CARBON DIOXIDE LEVEL 30 MEQ/L (21-32); CHLORIDE LEVEL 103 MEQ/L (98-107); CREATININE FOR GFR 0.96 MG/DL (0.70-1.30); GLOMERULAR FILTRATION RATE > 60.0 (>60); GLUCOSE, FASTING 133 MG/DL (70-105); POTASSIUM SERUM 3.5 MEQ/L (3.5-5.1); SODIUM LEVEL 141 MEQ/L (136-145); TOTAL PROTEIN 6.2 GM/DL (6.4-8.2)
[2016-09-12] MEDS: METOPROLOL TART 50 MG TAB NG SCH ×2 (07:35→20:40)
[2016-09-12] MEDS: clonazePAM 1 MG TAB PO SCH ×2 (07:42→20:40)
[2016-09-12] MEDS: ENOXAPARIN 40 MG/0.4 ML SYRINGE (J1650) SC SCH (07:43)
[2016-09-12] MEDS: CitaloPRAM (CeleXA) 20 MG TAB PO SCH (07:43)
[2016-09-12] MEDS: PANTOPRAZOLE 40MG INJ (PROTONIX) (C9113) IV SCH (07:43)
[2016-09-12] MEDS: LISINOPRIL 5 MG TAB PO SCH (07:44)
--- NOTE | 2016-09-12 09:14 | IPNPDOC ---
Subjective Date Seen The patient was seen on 09/12/16. Subjective Chief Complaint/HPI The patient is a 36-year-old male admitted with a reason for visit of Anxiety Atrial Fibrillation Diabetes Ileus. Events since last encounter s/p colonoscopy yesterday. Per op note, normal study. tissue samples taken. planned SBFT today. Constitutional: Denies: Chills, Fever, Night Sweats Eyes: Denies: Pain, Vision change ENT: Denies: Dysphagia, Ear Pain, Head Aches Pulmonary: Denies: Cough, Dyspnea Gastrointestinal: Denies: Abdominal Pain, Constipation, Diarrhea, Nausea, Vomiting Genitourinary: Denies: Dysuria, Frequency, Incontinence, Retention Psych: Reports: Mood Normal, Denies: Depression, Memory Issues Objective Physical Examination Eye Exam: Positive: Conjunctiva & lids normal, EOMI, PERRLA, Negative: Other Eye Symptoms, Ptosis, Sclera icteric Neck Exam: Positive: Supple, Negative: JVD, thyromegaly Chest Exam: Positive: Clear to auscultation, Normal air movement Heart Exam: Positive: Normal S1, Normal S2, Rate Normal, Regular Rhythm, Negative: Murmurs, Rubs Abdomen Exam: Positive: Normal bowel sounds, Soft, Tenderness (mild LUQ pain on palpation), Negative: Hepatospenomegaly Neuro Exam: Positive: Normal Gait, Normal Speech, Reflexes 2+ Psych Exam: Positive: Mental status NL, Mood NL, Oriented x 3 Assessment /Plan Problems (1) Chronic diarrhea Status: Acute Problem Text: 09/12/2016: started on dicyclomine by Gastro. Planned SBFT today. 09/11/16: EGC/colon normal-random SB/colon bx taken New onset bloody diarrhea since ~04/2016 - GI panel 08/2016 CRP 0.4/ESR 12 08/2016 CgA <1 08/2016 -TTG 08/2016 - IBD panel 08/2016 -ANCA profile (2) Diabetes Status: Chronic Response to Treatment: Stable (3) Anxiety Status: Chronic Response to Treatment: Stable (4) Lymphoma Status: Chronic Response to Treatment: Stable Problem Text: No evidence of recurrent by 06/2016 CT chest, 08/2016 CT AP Plan/VTE VTE Prophylaxis Ordered?: Yes (Lovenox) VS, I&O, 24H, Fishbone Vital Signs/I&O Vital Signs Date Time Temp Pulse Resp B/P Pulse Ox O2 Delivery O2 Flow Rate FiO2 09/12/16 07:44 16 09/12/16 07:44 102/57 09/12/16 07:35 62 09/12/16 06:00 96.9 94 Room Air I&O- Last 24 Hours up to 6 AM 09/12/16 06:00 Intake Total 1920 ml Output Total 1875 ml Balance 45 ml Laboratory Data 24H LABS Laboratory Tests 2 09/12/16 05:48: Blood Urea Nitrogen 7, Creatinine 0.96, Sodium Level 141, Potassium Level 3.5, Chloride Level 103, Carbon Dioxide Level 30, Calcium Level 8.2L, Aspartate Amino Transf (AST/SGOT) 24, Alanine Aminotransferase (ALT/SGPT) 69, Alkaline Phosphatase 68, Total Bilirubin 0.3, Total Protein 6.2L, Albumin 3.2, Albumin/ Globulin Ratio 1.07, Anion Gap 8, White Blood Count 5.0, Red Blood Count 4.26L, Hemoglobin 12.6L, Hematocrit 36.4L, Mean Corpuscular Volume 85.4, Mean Corpuscular Hemoglobin 29.5, Mean Corpuscular Hemoglobin Concent 34.5, Red Cell Distribution Width 13.3, Platelet Count 239, Neutrophils (%) (Auto) 57.4, Lymphocytes (%) (Auto) 29.5, Monocytes (%) (Auto) 5.6H, Eosinophils (%) (Auto) 5.4H, Basophils (%) (Auto) 0.5, Neutrophils # (Auto) 2.9, Lymphocytes # (Auto) 1.5, Monocytes # (Auto) 0.3, Eosinophils # (Auto) 0.3, Basophils # (Auto) 0.0, Glomerular Filtration Rate > 60.0, Large Unclassified Cells # 0.1, Large Unclassified Cells % 1.7 CBC/BMP Laboratory Tests 09/12/16 05:48 Calcium Level 8.2 L, Aspartate Amino Transf (AST/SGOT) 24, Alanine Aminotransferase (ALT/SGPT) 69, Alkaline Phosphatase 68, Total Bilirubin 0.3, Total Protein 6.2 L, Albumin 3.2, Red Blood Count 4.26 L, Mean Corpuscular Volume 85.4, Mean Corpuscular Hemoglobin 29.5, Mean Corpuscular Hemoglobin Concent 34.5, Red Cell Distribution Width 13.3, Neutrophils (%) (Auto) 57.4, Lymphocytes (%) (Auto) 29.5, Monocytes (%) (Auto) 5.6 H, Eosinophils (%) (Auto) 5.4 H, Basophils (%) (Auto) 0.5, Neutrophils # (Auto) 2.9, Lymphocytes # (Auto) 1.5, Monocytes # (Auto) 0.3, Eosinophils # (Auto) 0.3, Basophils # (Auto) 0.0 Microbiology Microbiology 09/10/16 Gastrointestinal Tract Panel (PCR) - Final, Complete Deanne Restrepo Sep 12, 2016 09:14 Brennen Jones M.D. Sep 12, 2016 13:31
[2016-09-12] MEDS: D5W/0.45% SODIUM CHLORIDE 1,000 ML IV SCH ×2 (10:17→20:40)
[2016-09-12] MEDS ORDERED: E-Z PAQUE 60% w/v SUSP 355ML BOTTLE As Ordered ONE ×2 (10:39→10:40)
[2016-09-12 13:25] VITALS: BP 134/76
[2016-09-12] MEDS: ONDANSETRON 4MG/2ML VIAL (J2405) IV PRN (13:35)
--- NOTE | 2016-09-12 13:39 | REP ---
Clinical: Abdominal pain and distension. Rule out bowel obstruction Findings: [employer] Clerk film of the abdomen is unremarkable. Single contrast small bowel follow-through examination demonstrates normal motility, peristalsis, and mucosal outline of the duodenum, jejunum, and ileum including terminal ileum, ileocecal valve and cecum. Total fluoroscopic time 42 seconds Impression: Normal small bowel follow-through examination. Signed by Carlos Kendrick MD 09/12/2016 01:30 P
[2016-09-12 14:00] VITALS: BP 135/76
[2016-09-12] MEDS: fluvoxaMINE MALEATE 50 MG TAB PO SCH (20:40)
[2016-09-12 22:00] VITALS: BP 132/77
[2016-09-13] MEDS: ONDANSETRON 4MG/2ML VIAL (J2405) IV PRN (03:20)
[2016-09-13] MEDS: MORPHINE 4 MG/ML 1ML SYRINGE IV PRN ×2 (03:21→06:38)
[2016-09-13 06:00] VITALS: BP 131/75
[2016-09-13 06:05] LABS: BASO % 0.6 % (0.0-1.0); EOS # 0.2 K/mm3 (0.0-0.50); EOS % 5.6 % (0.0-3.0); LYMPH # 1.5 K/mm3 (1.5-4.5); LYMPH % 31.8 % (24.0-44.0); MEAN CORPUSCULAR HEMOGLOBIN 30.3 pg (27.0-33.0); MEAN CORPUSCULAR HGB CONC 35.5 g/dl (32.0-36.5); MEAN CORPUSCULAR VOLUME 85.1 fl (80.0-96.0); MONO # 0.3 K/mm3 (0.0-0.8); MONO % 6.7 % (0.0-5.0); NEUTROPHILS # 2.4 K/mm3 (1.8-7.7); NEUTROPHILS % 54.3 % (36.0-66.0); PLATELET COUNT, AUTOMATED 239 k/mm3 (150-450); RED CELL DISTRIBUTION WIDTH 13.4 % (11.5-14.5); WHITE BLOOD COUNT 4.4 K/mm3 (4.0-10.0)
[2016-09-13 06:19] LABS: ALBUMIN 3.2 GM/DL (3.2-5.2); ALBUMIN/GLOBULIN RATIO 1.03 (1.00-1.93); ALKALINE PHOSPHATASE 70 U/L (45-117); ALT/SGPT 70 U/L (12-78); ANION GAP 9 MEQ/L (8-16); AST/SGOT 31 U/L (15-37); BILIRUBIN,TOTAL 0.3 MG/DL (0.2-1.0); BLOOD UREA NITROGEN 7 MG/DL (7-18); CARBON DIOXIDE LEVEL 28 MEQ/L (21-32); CHLORIDE LEVEL 104 MEQ/L (98-107); CREATININE FOR GFR 0.93 MG/DL (0.70-1.30); GLOMERULAR FILTRATION RATE > 60.0 (>60); GLUCOSE, FASTING 127 MG/DL (70-105); POTASSIUM SERUM 3.5 MEQ/L (3.5-5.1); SODIUM LEVEL 141 MEQ/L (136-145); TOTAL PROTEIN 6.3 GM/DL (6.4-8.2)
[2016-09-13] MEDS: D5W/0.45% SODIUM CHLORIDE 1,000 ML IV SCH (06:37)
--- NOTE | 2016-09-13 08:29 | IPNPDOC ---
Subjective Date Seen The patient was seen on 09/13/16. Subjective Chief Complaint/HPI The patient is a 36-year-old male admitted with a reason for visit of Anxiety Atrial Fibrillation Diabetes Ileus. Events since last encounter SBFT negative. BM yesterday. + flatus. Requesting MSO4 q 3-4 hours. Constitutional: Denies: Chills, Fever, Night Sweats ENT: Denies: Dysphagia, Ear Pain, Head Aches Skin: Denies: Breakdown, Lesions, Rash Pulmonary: Denies: Cough, Dyspnea Cardiovascular: Denies: Chest Pain, Lt Headedness, Orthopnea, Palpitations, Paroxysmal Noc. Dyspnea Gastrointestinal: Reports: Abdominal Pain, Denies: Constipation, Diarrhea, Nausea, Vomiting Psych: Reports: Mood Normal, Denies: Depression, Memory Issues Objective Physical Examination Eye Exam: Positive: Conjunctiva & lids normal, EOMI, PERRLA, Negative: Other Eye Symptoms, Ptosis, Sclera icteric Neck Exam: Positive: Supple, Negative: JVD, thyromegaly Chest Exam: Positive: Clear to auscultation, Normal air movement Heart Exam: Positive: Normal S1, Normal S2, Rate Normal, Regular Rhythm, Negative: Murmurs, Rubs Abdomen Exam: Positive: Normal bowel sounds, Soft, Negative: Hepatospenomegaly, Mass, Tenderness Neuro Exam: Positive: Normal Gait, Normal Speech, Reflexes 2+ Psych Exam: Positive: Mental status NL, Mood NL, Oriented x 3 Assessment /Plan Problems (1) Chronic diarrhea Status: Acute Problem Text: 09/13/2016: due to SBO hx, bowel regimen started. HOLD for diarrhea. Continue with gastro. slowly advance diet. anticipate DC in am. 09/12/2016: started on dicyclomine by Gastro. Planned SBFT today. 09/11/16: EGC/colon normal-random SB/colon bx taken New onset bloody diarrhea since ~04/2016 - GI panel 08/2016 CRP 0.4/ESR 12 08/2016 CgA <1 08/2016 -TTG 08/2016 - IBD panel 08/2016 -ANCA profile (2) Diabetes Status: Chronic Response to Treatment: Stable (3) Anxiety Status: Chronic Response to Treatment: Stable (4) Lymphoma Status: Chronic Response to Treatment: Stable Problem Text: No evidence of recurrent by 06/2016 CT chest, 08/2016 CT AP Plan/VTE VTE Prophylaxis Ordered?: Yes (Lovenox) Plan Attending Physician Note: I saw and examined this patient. The case was reviewed with the RPA and/or the PGY-3. VS, I&O, 24H, [facility] Vital Signs/I&O Vital Signs Date Time Temp Pulse Resp B/P Pulse Ox O2 Delivery O2 Flow Rate FiO2 09/13/16 07:00 18 Room Air 09/13/16 06:00 96.7 67 131/75 94 I&O- Last 24 Hours up to 6 AM 09/13/16 06:00 Intake Total 3960 ml Output Total 2300 ml Balance 1660 ml Laboratory Data 24H LABS Laboratory Tests 2 09/13/16 05:42: Blood Urea Nitrogen 7, Creatinine 0.93, Sodium Level 141, Potassium Level 3.5, Chloride Level 104, Carbon Dioxide Level 28, Calcium Level 8.0L, Aspartate Amino Transf (AST/SGOT) 31, Alanine Aminotransferase (ALT/SGPT) 70, Alkaline Phosphatase 70, Total Bilirubin 0.3, Total Protein 6.3L, Albumin 3.2, Albumin/ Globulin Ratio 1.03, Anion Gap 9, White Blood Count 4.4, Red Blood Count 4.17L, Hemoglobin 12.6L, Hematocrit 35.5L, Mean Corpuscular Volume 85.1, Mean Corpuscular Hemoglobin 30.3, Mean Corpuscular Hemoglobin Concent 35.5, Red Cell Distribution Width 13.4, Platelet Count 239, Neutrophils (%) (Auto) 54.3, Lymphocytes (%) (Auto) 31.8, Monocytes (%) (Auto) 6.7H, Eosinophils (%) (Auto) 5.6H, Basophils (%) (Auto) 0.6, Neutrophils # (Auto) 2.4, Lymphocytes # (Auto) 1.5, Monocytes # (Auto) 0.3, Eosinophils # (Auto) 0.2, Basophils # (Auto) 0.0, Glomerular Filtration Rate > 60.0, Large Unclassified Cells # 0.0, Large Unclassified Cells % 1.0 CBC/BMP Laboratory Tests 09/13/16 05:42 Calcium Level 8.0 L, Aspartate Amino Transf (AST/SGOT) 31, Alanine Aminotransferase (ALT/SGPT) 70, Alkaline Phosphatase 70, Total Bilirubin 0.3, Total Protein 6.3 L, Albumin 3.2, Red Blood Count 4.17 L, Mean Corpuscular Volume 85.1, Mean Corpuscular Hemoglobin 30.3, Mean Corpuscular Hemoglobin Concent 35.5, Red Cell Distribution Width 13.4, Neutrophils (%) (Auto) 54.3, Lymphocytes (%) (Auto) 31.8, Monocytes (%) (Auto) 6.7 H, Eosinophils (%) (Auto) 5.6 H, Basophils (%) (Auto) 0.6, Neutrophils # (Auto) 2.4, Lymphocytes # (Auto) 1.5, Monocytes # (Auto) 0.3, Eosinophils # (Auto) 0.2, Basophils # (Auto) 0.0 Microbiology Microbiology 09/10/16 Gastrointestinal Tract Panel (PCR) - Final, Complete Deanne Restrepo [facility] Sep 13, 2016 08:29 Schuyler Byrne M.D. Sep 14, 2016 17:57
[2016-09-13] MEDS: PANTOPRAZOLE 40MG INJ (PROTONIX) (C9113) IV SCH (08:37)
[2016-09-13] MEDS: METOPROLOL TART 50 MG TAB NG SCH ×2 (08:38→20:54)
[2016-09-13] MEDS: SENNA 8.6 MG TAB (SENOKOT) PO SCH ×2 (08:38→20:55)
[2016-09-13] MEDS: ENOXAPARIN 40 MG/0.4 ML SYRINGE (J1650) SC SCH (08:38)
[2016-09-13] MEDS: CitaloPRAM (CeleXA) 20 MG TAB PO SCH (08:38)
[2016-09-13] MEDS: DOCUSATE SODIUM 100 MG CAP PO SCH ×2 (08:38→20:55)
[2016-09-13] MEDS: LISINOPRIL 5 MG TAB PO SCH (08:38)
[2016-09-13] MEDS: clonazePAM 1 MG TAB PO SCH ×2 (08:38→20:54)
[2016-09-13] MEDS ORDERED: traMADol 50 MG TAB PO PRN ×2 (09:30→18:45)
[2016-09-13 14:00] VITALS: BP 110/65
[2016-09-13 20:54] VITALS: BP 118/64
[2016-09-13] MEDS: fluvoxaMINE MALEATE 50 MG TAB PO SCH (20:54)
[2016-09-13 22:00] VITALS: BP 118/64
[2016-09-13] MEDS ORDERED: MORPHINE 2 MG/ML 1ML SYRINGE IV PRN (22:45)
== END 2016-09-14 00:01 | disposition left against medical advice (07) | DRG 247 ==
LOC: M ED 22:57 → M ED INP 09-08 10:23 → M MSPAV 09-08 12:28
PROVIDERS: ADMIT Family Medicine; ATTEND Family Medicine
PROC: 0DB98ZX Excision of Duodenum, Via Natural or Artificial Opening Endoscopic, Diagnostic (ICD-10-PCS; principal; 2016-09-12)
PROC: 0DBB8ZX Excision of Ileum, Via Natural or Artificial Opening Endoscopic, Diagnostic (ICD-10-PCS; 2016-09-12)
DX: K56.69 Other intestinal obstruction (principal); C85.92 Non-Hodgkin lymphoma, unspecified, intrathoracic lymph nodes; K76.0 Fatty (change of) liver, not elsewhere classified; I48.91 Unspecified atrial fibrillation; E11.9 Type 2 diabetes mellitus without complications; K64.8 Other hemorrhoids; F41.9 Anxiety disorder, unspecified; R19.7 Diarrhea, unspecified; Z86.711 Personal history of pulmonary embolism; K92.1 Melena; Z91.5 Personal history of self-harm; Z87.891 Personal history of nicotine dependence; Z88.0 Allergy status to penicillin; Z83.3 Family history of diabetes mellitus; Z82.49 Family history of ischemic heart disease and other diseases of the circulatory system; Z79.899 Other long term (current) drug therapy

== ENCOUNTER → 2016-09-24 | Outpatient (REF) | payer OTHER ==
[~2016-09-24] MED LIST: AMBI10TA PO; ASPI81TA7 PO; CITA20TA4 PO; CLON1TAB PO; DULO1CAP PO; FLUV50TA PO; LISI-542 PO; METF1000 PO; METO50TA2 PO
== END ==
LOC: M LABDRAW1 11:36
PROVIDERS: ATTEND Family Medicine
DX: K52.9 Noninfective gastroenteritis and colitis, unspecified (principal)

== ENCOUNTER → 2016-09-24 | Outpatient (CLI) | payer OTHER ==
--- NOTE | 2016-09-26 17:16 | SLEEPCENT ---
DATE OF PROCEDURE: 09/24/2016 REFERRING PHYSICIAN: Ramona Carty Nocturnal polysomnography was performed for the titration of pressure therapy in this patient with obstructive sleep apnea syndrome, apnea-hypopnea index of 27. For testing, the patient was fit with a ResMed Quattro full face mask of medium size, 4 cm of water pressure were applied to the circuit and the lights were extinguished. 8 hours and 12 minutes of data were reviewed. There were 411 minutes of sleep identified. Sleep latency was normal at 7 minutes. Rapid eye movement (REM) sleep was not achieved. Sleep architecture showed poor progression despite optimal pressure therapy. Overall sleep efficiency was good at 85%. The patient's EKG showed a sinus rhythm with an average heart rate of 65 beats per minute. EEG showed some coarsening in background. No focal events. Respiratory events were best palliated with CPAP at a pressure +8. CPAP tolerance was reasonably good with some limb activity, but arousals from limb events were few. IMPRESSION: Obstructive sleep apnea syndrome (G47.33). RECOMMENDATION: Nightly use of pressure therapy at 8 cm of water should be sufficient to address the patient's respiratory events. If sleep symptoms persist, consideration may be given to re-evaluation of the patient's medication regimen as serotonin agents have been associated with REM suppression.
== END ==
LOC: M SLEEP 19:21
PROVIDERS: ATTEND Nurse Practitioner Adult Health
DX: G47.33 Obstructive sleep apnea (adult) (pediatric) (principal)

== ENCOUNTER → 2016-10-01 | Outpatient (REF) | payer OTHER | LOC: M LABDRAW1 17:04 | PROVIDERS: ATTEND Family Medicine | DX: K52.9 Noninfective gastroenteritis and colitis, unspecified (principal); E11.9 Type 2 diabetes mellitus without complications ==

== ENCOUNTER 2016-10-02 19:18 | Emergency (ER) | payer OTHER ==
[~2016-10-02] VITALS: Ht 182.9 cm; Wt 124.7 kg
[2016-10-02 19:18] VITALS: BP 127/71
== END 2016-10-02 20:36 | disposition left against medical advice (07) ==
LOC: M ED 20:17
DX: R10.9 Unspecified abdominal pain (principal); Z88.0 Allergy status to penicillin; Z79.82 Long term (current) use of aspirin; Z79.84 Long term (current) use of oral hypoglycemic drugs; Z79.899 Other long term (current) drug therapy; Z53.29 Procedure and treatment not carried out because of patient's decision for other reasons

== ENCOUNTER → 2016-10-02 | Outpatient (REF) | payer OTHER ==
[2016-10-07 14:20] LABS: TESTOSTERONE %FREE+WEAKLY BOUN 53.3 % (9.0-46.0); TESTOSTERONE FREE+WEAKLY BOUND 59.2 ng/dL (40.0-250.0)
== END ==
LOC: M LABDRAW1 17:03
PROVIDERS: ATTEND Physician Assistant Medical
DX: E29.1 Testicular hypofunction (principal)

== ENCOUNTER 2016-10-05 20:20 | Emergency (ER) | payer OTHER ==
[~2016-10-05] VITALS: Ht 182.9 cm; Wt 124.7 kg
[2016-10-05] MEDS ORDERED: ASPIRIN 81 MG CHEW TABLET PO ONE (20:45)
[2016-10-05 20:59] LABS: BASO % 0.7 % (0.0-1.0); EOS # 0.2 K/mm3 (0.0-0.50); LARGE UNSTAINED CELL # 0.2 K/mm3 (0.0-0.4); LARGE UNSTAINED CELL % 2.8 % (0.0-4.0); LYMPH # 1.8 K/mm3 (1.5-4.5); LYMPH % 30.8 % (24.0-44.0); MEAN CORPUSCULAR HEMOGLOBIN 29.6 pg (27.0-33.0); MEAN CORPUSCULAR HGB CONC 35.2 g/dl (32.0-36.5); MEAN CORPUSCULAR VOLUME 84.3 fl (80.0-96.0); MONO # 0.5 K/mm3 (0.0-0.8); MONO % 7.8 % (0.0-5.0); NEUTROPHILS # 3.2 K/mm3 (1.8-7.7); NEUTROPHILS % 53.9 % (36.0-66.0); PLATELET COUNT, AUTOMATED 241 k/mm3 (150-450); RED CELL DISTRIBUTION WIDTH 14.1 % (11.5-14.5); WHITE BLOOD COUNT 5.8 K/mm3 (4.0-10.0)
[2016-10-05 21:10] LABS: ANION GAP 10 MEQ/L (8-16); BLOOD UREA NITROGEN 18 MG/DL (7-18); CALCIUM LEVEL 8.5 MG/DL (8.5-10.1); CARBON DIOXIDE LEVEL 26 MEQ/L (21-32); CHLORIDE LEVEL 109 MEQ/L (98-107); CREATININE FOR GFR 0.91 MG/DL (0.70-1.30); GLOMERULAR FILTRATION RATE > 60.0 (>60); GLUCOSE, FASTING 102 MG/DL (70-105); POTASSIUM SERUM 3.9 MEQ/L (3.5-5.1); SODIUM LEVEL 145 MEQ/L (136-145)
[2016-10-05] MEDS: NITROGLYCERIN 0.4 MG SUBL TABLET SL PRN ×3 (21:21→21:52)
[2016-10-05 21:52] VITALS: BP 109/56
[2016-10-05] MEDS ORDERED: ISOVUE-370 76% 100ML VIAL (Q9967) As Ordered ONE (21:55)
--- NOTE | 2016-10-05 22:40 | REPUSA ---
History: shortness of breath Comparison: No prior CTA of the chest available Technique: A CT-pulmonary angiogram was performed. A dose of intravenous contrast was administered. A xial images were displayed, as were sagittal and coronal reconstructions. A 3-D model was also render ed. Exam DLP: Findings: No CT evidence of pulmonary embolism is identified. There is no evidence of thoracic aortic aneurysm or dissection. Bilateral hilar adenopathy is noted, nonspecific and possibily reactive. No air space consolidation is identified in the lungs. There is no evidence of pulmonary edema. No pa thologically enlarged mediastinal lymph nodes are identified. No significant pleural or pericardial f luid collection is seen. There is no evidence of pneumothorax. Mild degenerative changes are noted in the spine. The included portion of the upper abdomen does not show significant abnormality. Impression: No evidence of pulmonary embolism is identified. Bilateral hilar adenopathy is noted, nonspecific and possibily reactive.
[2016-10-05] MEDS ORDERED: GI COCKTAIL 50ML BTL(HYOSCYAMINE/MAALOX/LIDOCAINE VISCOUS)(1:3:1) PO ONE (22:45)
[2016-10-05] MEDS ORDERED: MORPHINE 4 MG/ML 1ML SYRINGE IV ONE (22:45)
[2016-10-05] MEDS ORDERED: ONDANSETRON 4MG/2ML VIAL (J2405) IV ONE (22:45)
[2016-10-05] MEDS ORDERED: HYDROmorphone HCL 1 MG/ML SYRINGE (J1170) IV ONE (23:30)
[2016-10-06] MEDS ORDERED: diphenhydrAMINE INJ 50MG/ML VIAL (J1200) IV ONE (01:15)
[2016-10-06] MEDS ORDERED: HYDROmorphone HCL 1 MG/ML SYRINGE (J1170) IV PRN (01:15)
[2016-10-06 02:38] VITALS: BP 99/50
--- NOTE | 2016-10-06 07:53 | REP ---
PORTABLE CHEST X-RAY: CLINICAL: Chest pain. COMPARISON: 06/30/2016. FINDINGS: Mediastinum and cardiac silhouette are within normal limits. Lung bush are clear. No focal consolidation, effusion or pneumothorax. Skeletal structures intact. IMPRESSION: No acute cardiopulmonary process or focal consolidation. Unreviewed
--- NOTE | 2016-10-06 12:31 | ECGEPIP ---
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
--- NOTE | 2016-10-06 12:34 | ECGEPIP ---
Stationary ECG Study 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
--- NOTE | 2016-10-07 11:15 | ED PDOC ---
Provider Note radiology report faxed to Mary Blevins MD Oct 07, 2016 11:15
== END 2016-10-06 04:36 | disposition home or self-care (01) ==
LOC: M ED 21:04
DX: R07.89 Other chest pain (principal); E11.9 Type 2 diabetes mellitus without complications; I48.91 Unspecified atrial fibrillation; G47.30 Sleep apnea, unspecified; C85.90 Non-Hodgkin lymphoma, unspecified, unspecified site; Z86.711 Personal history of pulmonary embolism; Z82.49 Family history of ischemic heart disease and other diseases of the circulatory system; Z88.0 Allergy status to penicillin; Z79.899 Other long term (current) drug therapy; Z79.82 Long term (current) use of aspirin; Z79.84 Long term (current) use of oral hypoglycemic drugs

== ENCOUNTER 2016-10-08 22:45 | Emergency (ER) | payer OTHER ==
[~2016-10-08] VITALS: Ht 182.9 cm; Wt 124.7 kg
[2016-10-08 22:45] VITALS: BP 137/68
[2016-10-08] MEDS ORDERED: KETOROLAC 30 MG/ML VIAL (J1885) IV ONE (23:45)
[2016-10-09 00:41] LABS: BASO % 0.9 % (0.0-1.0); EOS # 0.2 K/mm3 (0.0-0.50); EOS % 4.4 % (0.0-3.0); LARGE UNSTAINED CELL # 0.1 K/mm3 (0.0-0.4); LARGE UNSTAINED CELL % 2.6 % (0.0-4.0); LYMPH # 1.5 K/mm3 (1.5-4.5); LYMPH % 28.3 % (24.0-44.0); MEAN CORPUSCULAR HGB CONC 35.7 g/dl (32.0-36.5); MEAN CORPUSCULAR VOLUME 84.1 fl (80.0-96.0); MONO # 0.4 K/mm3 (0.0-0.8); NEUTROPHILS % 55.7 % (36.0-66.0); PLATELET COUNT, AUTOMATED 239 k/mm3 (150-450); RED CELL DISTRIBUTION WIDTH 14.3 % (11.5-14.5); WHITE BLOOD COUNT 5.4 K/mm3 (4.0-10.0)
[2016-10-09 00:48] LABS: ABG BASE EXCESS -1.9 (-2.0-2.0); ABG PARTIAL PRESSURE CO2 34.8 mmHg (35.0-45.0); ABG PARTIAL PRESSURE O2 88.2 mmHg (75.0-100.0); ABG STANDARD HCO3 22.9 MEQ/L (22.0-26.0); ABG pH (ARTERIAL) 7.418 UNITS (7.350-7.450)
[2016-10-09 00:48] LABS: INR 0.98
[2016-10-09 01:07] LABS: ANION GAP 10 MEQ/L (8-16); BLOOD UREA NITROGEN 9 MG/DL (7-18); CALCIUM LEVEL 8.6 MG/DL (8.5-10.1); CARBON DIOXIDE LEVEL 23 MEQ/L (21-32); CHLORIDE LEVEL 109 MEQ/L (98-107); CREATININE FOR GFR 0.78 MG/DL (0.70-1.30); GLOMERULAR FILTRATION RATE > 60.0 (>60); GLUCOSE, FASTING 89 MG/DL (70-105); POTASSIUM SERUM 4.1 MEQ/L (3.5-5.1); SODIUM LEVEL 142 MEQ/L (136-145)
[2016-10-09] MEDS ORDERED: ISOVUE-370 76% 100ML VIAL (Q9967) As Ordered ONE (01:21)
--- NOTE | 2016-10-09 01:35 | REP ---
Clinical: Chest pain . Comparison: 06/30/2016 . Technique: PA and lateral. Findings: The mediastinum and cardiac silhouette are normal. The lung bush are clear and without acute consolidation, effusion, or pneumothorax. The skeletal structures are intact and normal. Impression: 1. No acute cardiopulmonary process. Signed by Carlos Kendrick MD 10/09/2016 01:26 A
[2016-10-09] MEDS ORDERED: METOCLOPRAMIDE INJ 10MG/2ML VIAL (J2765) IV ONE (02:15)
[2016-10-09] MEDS ORDERED: HYDROmorphone HCL 1 MG/ML SYRINGE (J1170) IV ONE (02:15)
--- NOTE | 2016-10-09 03:21 | REPUSA ---
CLINICAL HISTORY: Dyspnea, exclude PE. TECHNIQUE: Multiple incremental axial, coronal and oblique images are obtained from the thoracic inle t to the upper abdomen. Intravenous contrast material was administered as per pulmonary embolism prot ocol. COMMENTS: Comparison is made to the prior exam on 10/05/2016. Increased bilateral basilar groundglass densities of the lungs. There is excellent opacification of pulmonary arterial system without evidence for pulmonary embolism . Aorta is of normal caliber without evidence for dissection or aneurysm. There is no evidence of pleural or parenchymal mass. There are no pleural effusions. There is no evid ence of hilar or mediastinal lymphadenopathy. The heart and great vessels are within normal limits. Images of the upper abdomen demonstrate no evidence of adrenal mass. The bony structures are free of lytic or blastic lesions. Multilevel degenerative changes are seen in volving the visualized thoracolumbar spine. Moderate hepatomegaly with fatty infiltration. Mild splenomegaly. IMPRESSION: No evidence for pulmonary embolism. Increased bilateral basilar groundglass densities of the lungs. Thank you for your kind referral of this patient.
[2016-10-09] MEDS ORDERED: MORPHINE 2 MG/ML 1ML SYRINGE IV ONE ×2 (03:45→05:45)
[2016-10-09] MEDS ORDERED: KETO10TAB PO (05:29)
--- NOTE | 2016-10-09 08:53 | ECGEPIP ---
Stationary ECG Study [facility] - ED Test Date: 2016-10-08 Pat Name: AUDREY ARECHIGA Department: Room: - Gender: M Con[employer] Assistant: : 1980 Requested By: EVER COWART Order Number: [id number] Reading MD: Sven Smith Measurements Intervals [place] Rate: 82 P: 16 AR: 124 QRS: 6 QRSD: 110 T: 24 QT: 384 QTc: 451 Interpretive Statements SINUS RHYTHM INFERIOR MYOCARDIAL INFARCTION, PROBABLY OLD SIMILAR TO 10/06/16 Electronically Signed On 10-09-2016 8:53:29 EDT by Sven Smith
--- NOTE | 2016-10-12 20:23 | ECGEPIP ---
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
== END 2016-10-09 05:47 | disposition home or self-care (01) ==
LOC: M ED 10-09 00:01
DX: R07.89 Other chest pain (principal); E10.9 Type 1 diabetes mellitus without complications; I10 Essential (primary) hypertension; F32.9 Major depressive disorder, single episode, unspecified; Z79.899 Other long term (current) drug therapy; Z79.82 Long term (current) use of aspirin; Z79.84 Long term (current) use of oral hypoglycemic drugs; Z88.0 Allergy status to penicillin

== ENCOUNTER 2016-10-14 06:57 | Emergency (ER) | payer OTHER ==
[~2016-10-14] VITALS: Ht 182.9 cm; Wt 127.0 kg
[~2016-10-14 06:57] MED LIST changes: +KETO10TAB PO
[2016-10-14] MEDS ORDERED: PANTOPRAZOLE 40MG INJ (PROTONIX) (C9113) IV ONE (08:30)
[2016-10-14] MEDS ORDERED: ONDANSETRON 4MG/2ML VIAL (J2405) IV ONE (08:30)
[2016-10-14] MEDS ORDERED: NS 1,000 ML IV ONE (08:30)
[2016-10-14 08:37] LABS: ALBUMIN 3.6 GM/DL (3.2-5.2); ALBUMIN/GLOBULIN RATIO 1.09 (1.00-1.93); ALKALINE PHOSPHATASE 80 U/L (45-117); ALT/SGPT 55 U/L (12-78); AMYLASE 25 U/L (25-115); ANION GAP 8 MEQ/L (8-16); AST/SGOT 24 U/L (15-37); BASO % 0.9 % (0.0-1.0); BILIRUBIN,DIRECT < 0.1 MG/DL (0.0-0.2); BILIRUBIN,TOTAL 0.3 MG/DL (0.2-1.0); BLOOD UREA NITROGEN 17 MG/DL (7-18); CALCIUM LEVEL 7.6 MG/DL (8.5-10.1); CARBON DIOXIDE LEVEL 25 MEQ/L (21-32); CHLORIDE LEVEL 108 MEQ/L (98-107); CREATININE FOR GFR 1.01 MG/DL (0.70-1.30); EOS # 0.2 K/mm3 (0.0-0.50); EOS % 5.2 % (0.0-3.0); GLOMERULAR FILTRATION RATE > 60.0 (>60); GLUCOSE, FASTING 135 MG/DL (70-105); LARGE UNSTAINED CELL # 0.1 K/mm3 (0.0-0.4); LARGE UNSTAINED CELL % 2.3 % (0.0-4.0); LYMPH # 1.8 K/mm3 (1.5-4.5); LYMPH % 39.4 % (24.0-44.0); MEAN CORPUSCULAR HEMOGLOBIN 30.4 pg (27.0-33.0); MEAN CORPUSCULAR HGB CONC 35.4 g/dl (32.0-36.5); MEAN CORPUSCULAR VOLUME 85.7 fl (80.0-96.0); MONO # 0.4 K/mm3 (0.0-0.8); MONO % 8.2 % (0.0-5.0); NEUTROPHILS # 1.9 K/mm3 (1.8-7.7); PLATELET COUNT, AUTOMATED 233 k/mm3 (150-450); RED CELL DISTRIBUTION WIDTH 14.2 % (11.5-14.5); SODIUM LEVEL 141 MEQ/L (136-145); TOTAL PROTEIN 6.9 GM/DL (6.4-8.2); WHITE BLOOD COUNT 4.2 K/mm3 (4.0-10.0)
[2016-10-14] MEDS: MORPHINE 4 MG/ML 1ML SYRINGE IV PRN ×2 (08:49→09:24)
--- NOTE | 2016-10-14 09:19 | REP ---
PORTABLE CHEST: AP portable view of the chest was performed and compared to prior study of 10/09/2016. There is mild linear atelectatic change in each lung base. No consolidation is seen. Cardiomediastinal silhouette is unremarkable and unchanged. IMPRESSION: Mild bibasilar atelectatic change. No free air under the diaphragms. Signed by Boone Sullivan MD 10/14/2016 03:28 P
[2016-10-14] MEDS ORDERED: ISOVUE-370 76% 100ML VIAL (Q9967) As Ordered ONE (09:41)
--- NOTE | 2016-10-14 10:11 | REP ---
RIGHT UPPER QUADRANT ULTRASOUND: Real-time sonographic evaluation of the right upper quadrant performed. The gallbladder demonstrates no evidence of intraluminal sludge or calculi, wall thickening or pericholecystic fluid. There is no intrahepatic or extrahepatic biliary dilatation, common bile duct measuring 4 mm in diameter. The liver demonstrates diffuse increased echotexture compatible with diffuse fatty infiltration. No gross liver or pancreatic mass is seen. The pancreas is not optimally seen due to overlying bowel gas. Right kidney demonstrates no hydronephrosis or nephrolithiasis with normal size at 11.3 cm in length. The study is somewhat limited due to patient body habitus. IMPRESSION: Diffuse fatty infiltration of the liver. No gallstones seen and no evidence of gallbladder wall thickening, pericholecystic fluid or biliary dilatation. Signed by Boone Sullivan MD 10/14/2016 03:29 P
--- NOTE | 2016-10-14 10:14 | REP ---
Clinical: Abdominal pain with bloody diarrhea. Technique: Axial contrast enhanced images from the lung bases to the pubic symphysis using 100 ml Isovue 370 intravenous contrast material with coronal and sagittal re-formations. Comparison: 09/08/2016. Findings: Lung bases demonstrate subtle ground-glass opacity primarily involving the left lower lobe suggesting atelectasis/early infiltrate. Visualized heart and pericardium normal. Fatty infiltration to the liver. Spleen, pancreas, gallbladder, bilateral adrenal glands and kidneys are normal. The enteric system is without obstruction or acute inflammatory process. Normal terminal ileum and appendix identified in the right lower quadrant. Pelvis demonstrates normal bladder and age appropriate prostate/seminal vesicles. No ascites. No free air. No intraperitoneal or retroperitoneal adenopathy. No mass lesion. Abdominal aorta and vasculature is normal. Surrounding musculoskeletal structures are intact. Impression: 1. Cannot exclude mild basilar atelectasis/early infiltrate predominantly left lower lobe. 2. Fatty infiltration to the liver. 3. No further acute intra-abdominal or pelvic pathology appreciated. Signed by Carlos Kendrick MD 10/14/2016 10:05 A
[2016-10-14] MEDS ORDERED: MORPHINE 4 MG/ML 1ML SYRINGE IV ONE (10:30)
[2016-10-14 10:41] VITALS: BP 103/54
[2016-10-14] MEDS ORDERED: FLUV100T2 PO (10:50)
[2016-10-14] MEDS ORDERED: CITA40TA4 PO (10:50)
[2016-10-14] MEDS ORDERED: CLON2TAB PO (10:50)
[2016-10-14] MEDS ORDERED: DICY1CAP8 PO (10:50)
[2016-10-14] MEDS ORDERED: OMEP40CA2 PO (10:51)
--- NOTE | 2016-10-15 07:15 | ECGEPIP ---
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
== END 2016-10-14 11:20 | disposition left against medical advice (07) ==
LOC: M ED 08:32
DX: R10.9 Unspecified abdominal pain (principal)

== ENCOUNTER 2016-10-17 15:53 | Emergency (ER) | payer OTHER ==
[~2016-10-17] VITALS: Ht 182.9 cm; Wt 127.0 kg
[~2016-10-17 15:53] MED LIST changes: +CITA40TA4 PO; +CLON2TAB PO; +DICY1CAP8 PO; +FLUV100T2 PO; +OMEP40CA2 PO
[2016-10-17] MEDS ORDERED: ACETAMINOPHEN 325 MG TAB PO ONE (16:45)
[2016-10-17] MEDS ORDERED: ONDANSETRON 4 MG ORAL DISINTEGRATING TAB (S0181) PO ONE (17:00)
[2016-10-17 17:23] LABS: BASO % 0.6 % (0.0-1.0); EOS # 0.2 K/mm3 (0.0-0.50); EOS % 3.9 % (0.0-3.0); LARGE UNSTAINED CELL # 0.1 K/mm3 (0.0-0.4); LARGE UNSTAINED CELL % 1.9 % (0.0-4.0); LYMPH # 1.4 K/mm3 (1.5-4.5); LYMPH % 26.7 % (24.0-44.0); MEAN CORPUSCULAR HEMOGLOBIN 29.8 pg (27.0-33.0); MEAN CORPUSCULAR HGB CONC 34.7 g/dl (32.0-36.5); MEAN CORPUSCULAR VOLUME 85.9 fl (80.0-96.0); MONO # 0.3 K/mm3 (0.0-0.8); MONO % 6.6 % (0.0-5.0); NEUTROPHILS # 3.1 K/mm3 (1.8-7.7); NEUTROPHILS % 60.3 % (36.0-66.0); PLATELET COUNT, AUTOMATED 208 k/mm3 (150-450); RED CELL DISTRIBUTION WIDTH 14.3 % (11.5-14.5); WHITE BLOOD COUNT 5.1 K/mm3 (4.0-10.0)
--- NOTE | 2016-10-17 17:40 | ECGEPIP ---
Stationary ECG Study [facility] - ED Test Date: 2016-10-17 Pat Name: AUDREY ARECHIGA Department: Room: - Gender: M Carding Supervisor: anne-marie : 1980 Requested By: KEELEY DEAN PA-C. Order Number: [id number] Reading MD: Sven Smith Measurements Intervals [place] Rate: 57 P: 14 GA: 146 QRS: 10 QRSD: 105 T: 13 QT: 437 QTc: 428 Interpretive Statements SINUS BRADYCARDIA Electronically Signed On 10-17-2016 17:40:16 EDT by Sven Smith
[2016-10-17 17:45] LABS: ANION GAP 6 MEQ/L (8-16); BLOOD UREA NITROGEN 13 MG/DL (7-18); CALCIUM LEVEL 8.5 MG/DL (8.5-10.1); CARBON DIOXIDE LEVEL 30 MEQ/L (21-32); CHLORIDE LEVEL 106 MEQ/L (98-107); CREATININE FOR GFR 0.88 MG/DL (0.70-1.30); GLOMERULAR FILTRATION RATE > 60.0 (>60); GLUCOSE, FASTING 91 MG/DL (70-105); SODIUM LEVEL 142 MEQ/L (136-145)
--- NOTE | 2016-10-17 17:46 | REP ---
Clinical: Chest pain. Technique: PA and lateral. Comparison: 10/14/2016. Findings: Subtle linear left basilar fibroatelectatic changes noted. Mediastinum and cardiac silhouette normal. No further consolidation, effusion, or pneumothorax. Skeletal structures intact. Impression: Subtle left basilar fibroatelectatic changes. Signed by Carlos Kendrick MD 10/17/2016 05:39 P
[2016-10-17] MEDS ORDERED: KETOROLAC 30 MG/ML VIAL (J1885) IM ONE (18:00)
[2016-10-17] MEDS ORDERED: NAPR500T PO (18:55)
[2016-10-17 19:03] VITALS: BP 120/69
== END 2016-10-17 19:05 | disposition home or self-care (01) ==
LOC: M ED 16:38
DX: F41.9 Anxiety disorder, unspecified (principal)

== ENCOUNTER 2016-11-06 05:20 | Emergency (ER) | payer OTHER ==
[~2016-11-06] VITALS: Ht 182.9 cm; Wt 129.3 kg
[~2016-11-06 05:20] MED LIST changes: +NAPR500T PO
[2016-11-06] MEDS ORDERED: GASTROGRAFIN SOLUTION 30ML (Q9963) As Ordered ONE (06:10)
[2016-11-06 06:12] LABS: BASO % 0.5 % (0.0-1.0); EOS # 0.3 K/mm3 (0.0-0.50); LARGE UNSTAINED CELL # 0.1 K/mm3 (0.0-0.4); LARGE UNSTAINED CELL % 2.4 % (0.0-4.0); LYMPH # 1.7 K/mm3 (1.5-4.5); LYMPH % 31.1 % (24.0-44.0); MEAN CORPUSCULAR HEMOGLOBIN 28.9 pg (27.0-33.0); MEAN CORPUSCULAR HGB CONC 33.8 g/dl (32.0-36.5); MEAN CORPUSCULAR VOLUME 85.6 fl (80.0-96.0); MONO # 0.4 K/mm3 (0.0-0.8); MONO % 8.1 % (0.0-5.0); NEUTROPHILS # 2.7 K/mm3 (1.8-7.7); NEUTROPHILS % 52.9 % (36.0-66.0); PLATELET COUNT, AUTOMATED 208 k/mm3 (150-450); RED CELL DISTRIBUTION WIDTH 14.6 % (11.5-14.5); WHITE BLOOD COUNT 5.2 K/mm3 (4.0-10.0)
[2016-11-06 06:25] LABS: ALBUMIN 3.6 GM/DL (3.2-5.2); ALBUMIN/GLOBULIN RATIO 1.13 (1.00-1.93); ALKALINE PHOSPHATASE 67 U/L (45-117); ALT/SGPT 51 U/L (12-78); AMYLASE 18 U/L (25-115); ANION GAP 9 MEQ/L (8-16); AST/SGOT 19 U/L (15-37); BILIRUBIN,DIRECT < 0.1 MG/DL (0.0-0.2); BILIRUBIN,TOTAL 0.3 MG/DL (0.2-1.0); BLOOD UREA NITROGEN 12 MG/DL (7-18); CARBON DIOXIDE LEVEL 24 MEQ/L (21-32); CHLORIDE LEVEL 110 MEQ/L (98-107); CREATININE FOR GFR 0.86 MG/DL (0.70-1.30); GLOMERULAR FILTRATION RATE > 60.0 (>60); GLUCOSE, FASTING 121 MG/DL (70-105); POTASSIUM SERUM 3.5 MEQ/L (3.5-5.1); SODIUM LEVEL 143 MEQ/L (136-145); TOTAL PROTEIN 6.8 GM/DL (6.4-8.2)
[2016-11-06] MEDS ORDERED: KETOROLAC 30 MG/ML VIAL (J1885) As Ordered ONE (06:39)
[2016-11-06] MEDS ORDERED: ONDANSETRON 4MG/2ML VIAL (J2405) As Ordered ONE (06:39)
[2016-11-06] MEDS ORDERED: KETOROLAC 30 MG/ML VIAL (J1885) IV ONE (06:45)
[2016-11-06] MEDS ORDERED: ONDANSETRON 4MG/2ML VIAL (J2405) IV ONE (06:45)
[2016-11-06] MEDS ORDERED: DICYCLOMINE INJ 20MG/2ML (J0500) IM ONE (07:30)
[2016-11-06] MEDS ORDERED: ISOVUE-370 76% 100ML VIAL (Q9967) As Ordered ONE (07:53)
--- NOTE | 2016-11-06 08:57 | REP ---
CT ABDOMEN PELVIS WITH IV AND ORAL CONTRAST: 11/06/2016. Clinical history: Abdominal pain, history of small bowel obstruction. Technique: Oral Gastrografin 10 mL in 290 mL of flavored water per our bowel contrast protocol with bolus of 100 mL Isovue 370 and scanning through the abdomen and pelvis. Coronal and sagittal reconstructions were provided. Findings: CT abdomen: The director of diversity and inclusion image shows a grossly unremarkable gas pattern. The lung bases show subsegmental atelectasis and hazy ground-glass opacities lower lobes without effusion, dense consolidation or mass . Heart size not enlarged. There is no pericardial thickening or effusion. Liver again shows hypodensity throughout which suggests some fatty infiltration. There is hepatomegaly with a 20 cm vertical diameter of the right lobe of the liver in the midclavicular line. No focal hepatic mass or biliary dilatation . There is no splenomegaly or focal splenic lesion. Gallbladder is partially contracted and shows no calcified stone or mass. Adrenal glands, pancreas, and kidneys are unremarkable. The aorta is without aneurysm. There is no periaortic or other retroperitoneal and mesenteric pathologic sized lymphadenopathy. Small bowel loops with contrast and fluid are not abnormally dilated and show no mass, slightly thickened wall and some loops of jejunum may reflect some gastroenteritis. There is no inflammatory change. The appendix is seen in the right mid abdomen extending from the cecal tip medially without inflammatory change. Contrast reaches the cecum and transverse colon. There is scattered stool and contrast and gas without signs of colitis or diverticulitis in the abdomen proper. There is no free air in the abdomen or pelvis on lung window review. The bone windows show some minor degenerative changes with tiny endplate spurs in the thoracic spine but no compression deformity of destructive lesion. Visualized ribs intact. CT pelvis: The bony hips, pelvis, sacrum, SI joints and lumbosacral junction showed no focal lesion. Bladder unremarkable without wall thickening, stone or mass. There are a few pelvic phleboliths but no ureteral dilatation or ureteral stone. Distal left colon and sigmoid. A few scattered diverticula without signs of colitis or diverticulitis and no stricture or mass. No pelvic lymphadenopathy, ventral or inguinal hernia or pelvic mass. Impression: 1. A few small bowel loops in the left upper quadrant with some thickened wall that may reflect some gastroenteritis but no evidence of colitis, diverticulitis, appendicitis, ascites, abscess or free air. 2. Fatty infiltration of the liver with hepatomegaly up to 20 cm vertical diameter of the right lobe. No hepatic or splenic mass. No biliary dilatation, calcified gallstones or abnormalities of the adrenal glands. 3. Renal, ureteral and bladder structures without stone, mass or other significant finding. Signed by Jemal Newberry MD 11/06/2016 02:53 P
[2016-11-06] MEDS ORDERED: IMOD2TAB16 PO (08:58)
[2016-11-06] MEDS ORDERED: BENT10CA PO (08:58)
[2016-11-06 09:12] VITALS: BP 117/67
== END 2016-11-06 09:15 | disposition home or self-care (01) ==
LOC: M ED 05:57
DX: K58.0 Irritable bowel syndrome with diarrhea (principal); I10 Essential (primary) hypertension; E11.9 Type 2 diabetes mellitus without complications; G89.29 Other chronic pain; R10.9 Unspecified abdominal pain; F33.9 Major depressive disorder, recurrent, unspecified; Z79.899 Other long term (current) drug therapy; Z79.82 Long term (current) use of aspirin; Z79.84 Long term (current) use of oral hypoglycemic drugs; Z88.0 Allergy status to penicillin; Z87.891 Personal history of nicotine dependence

== ENCOUNTER → 2016-11-11 | Outpatient (REF) | payer OTHER ==
[~2016-11-11] MED LIST changes: +BENT10CA PO; +IMOD2TAB16 PO
== END ==
LOC: M LABDRAW1 11:09
PROVIDERS: ATTEND Physician Assistant Medical
DX: E29.1 Testicular hypofunction (principal)

== ENCOUNTER 2016-12-09 21:26 | Emergency (ER) | payer OTHER ==
[~2016-12-09] VITALS: Ht 182.9 cm; Wt 129.3 kg
[2016-12-09] MEDS ORDERED: TEST1INJ3 IM (21:35)
[2016-12-09] MEDS ORDERED: KETOROLAC 30 MG/ML VIAL (J1885) IV ONE (22:00)
[2016-12-09] MEDS ORDERED: METOCLOPRAMIDE INJ 10MG/2ML VIAL (J2765) IV ONE (22:00)
[2016-12-09 22:47] LABS: METHADONE URINE NEGATIVE (NEGATIVE)
--- NOTE | 2016-12-09 22:50 | REPUSA ---
CT of the head Clinical history: Headache. Technique: Multiple axial CT images were obtained through the head without administration of contrast . Comparison: None. Findings: The ventricles and sulci are symmetric bilaterally. There is no evidence of acute hemorrhag e or infarct. There is no midline shift, mass effect, or extra-axial fluid collection. The osseous st ructures are unremarkable. The visualized paranasal sinuses and mastoid air cells are clear. Impression: Negative study.
[2016-12-09] MEDS ORDERED: dexameTHASONE 20 MG/5 ML VIAL (J1100) IV ONE (23:30)
[2016-12-10 00:13] VITALS: BP 122/64
== END 2016-12-10 00:24 | disposition home or self-care (01) ==
LOC: M ED 22:04
DX: G44.209 Tension-type headache, unspecified, not intractable (principal); F19.10 Other psychoactive substance abuse, uncomplicated; Z87.891 Personal history of nicotine dependence; Z79.82 Long term (current) use of aspirin; Z79.899 Other long term (current) drug therapy; Z88.0 Allergy status to penicillin; Z88.1 Allergy status to other antibiotic agents; Z88.8 Allergy status to other drugs, medicaments and biological substances